=== PATIENT | female | born 1950 | race Caucasian/White ===

== ENCOUNTER 2016-08-04 13:45 | Emergency (ER) | payer MEDICARE, OTHER ==
[2016-08-04] MEDS ORDERED: Triamcinolone Acetonide 40 MG/ML 1 ML MDV INJECT ONE (14:28)
[2016-08-04] MEDS ORDERED: Ketorolac 60 MG/2 ML SDV IM ONE (14:28)
[2016-08-04 15:58] VITALS: BP 138/74
--- NOTE | 2016-08-05 07:39 | ER ---
Date of Service: 08/04/2016 SUBJECTIVE: Jannet presents to the emergency room with complaints of right hip pain. The patient states that she has a history of osteoarthritis of her right hip and states that she had a car ride yesterday that lasted approximately 6 hours. She states that at approximately noon today, she was attempting to navigate either onto or off the toilet when she fell onto her backside. She states that she is experiencing severe right hip pain. She states that she fell from a semi squatted position and states that there was no significant amount of force, but states that this exacerbated her chronic hip pain. She denies any numbness or tingling distal to the area of injury and denies any other injury other than what is isolated to her right hip. PAST MEDICAL HISTORY: 1. Coronary artery disease. 2. Chronic pain syndrome. 3. Hypothyroidism. 4. Peripheral neuropathy. 5. Peripheral edema. 6. Hyperlipidemia. 7. Asthma. 8. COPD. 9. Anxiety. MEDICATIONS: Please see MAR. ALLERGIES: Bupropion, etodolac, and morphine as well as plastic tape. REVIEW OF SYSTEMS: Denies any numbness or tingling distal to the area of injury. Denies any injury other than what was isolated to the right hip. PHYSICAL EXAMINATION: General: This is a 66-year-old female patient, who is in moderate to severe amount of distress. Vital Signs: Blood pressure initially was 174/71 after she received her medication, it was down to 138/74, heart rate was 98, respiratory rate was 16, O2 saturations 99%, temperature is 36.2. SKIN: Warm, pink, and dry. Musculoskeletal: She has discomfort to the entirety of the hip, primarily to the posterior aspect. There is no obvious step-offs or deformity noted. Her range of motion is decreased due to discomfort. She is able to bear weight with a walker. There is no crepitus noted. Neurovascular, circulation, sensation, motor function all within normal limits in distal portion of the extremity. RADIOGRAPHIC DATA: Right hip x-ray with pelvis was obtained. There was evidence of a possible lucency due to the fracture on the superior aspect of the right acetabulum. Radiologist suggested CT scan for further imaging. CT scan was subsequently performed and there was no evidence of any acute fracture. EMERGENCY ROOM COURSE: The patient was given injection of Toradol 60 mg IM and Kenalog 80 mg IM. She remained stable in my care. She did report significant improvement in her discomfort and remained stable under my care in the emergency room. ASSESSMENT: Acute on chronic right hip pain. PLAN: The patient will be discharged. I did start her on prednisone 20 mg daily for 5 days. Did start her also on Toradol 10 mg twice daily for pain. She does have oxycodone, which she states is of minimal benefit to her hip pain. I did advise her to follow up with her primary care provider to see if there is a different NSAID that she could take since the meloxicam that she is prescribed is not helping. All questions were answered. MWK: 08/04/2016 17:33:02 MODL: 08/04/2016 21:06:39 /[id number]
== END 2016-08-04 16:02 | disposition home or self-care (01) ==
LOC: VM.ED 13:45
DX: M25.551 Pain in right hip (principal); G89.29 Other chronic pain; Z88.5 Allergy status to narcotic agent; Z88.8 Allergy status to other drugs, medicaments and biological substances; Z91.048 Other nonmedicinal substance allergy status
CPT/HCPCS: 73502; 73700; 96372; 99283; 99284; J1885; J3301

== ENCOUNTER 2016-10-06 12:49 | Emergency (ER) | payer MEDICARE, OTHER ==
[2016-10-06] MEDS ORDERED: Ondansetron 4 MG/2 ML SDV IVPUSH ONE (13:00)
[2016-10-06] MEDS ORDERED: HYDROmorphone 1 MG/ML Syringe IVPUSH ONE ×2 (13:00→14:04)
--- NOTE | 2016-10-06 13:05 | EDM.PDOC ---
ED HPI GENERAL MEDICAL PROBLEM - General Chief Complaint: Lower Extremity Injury/Pain Stated Complaint: Right hip pain; no injury Time Seen by Provider: 10/06/16 12:53 Source of Information: Reports: Patient, EMS Notes Reviewed, RN, RN Notes Reviewed History Limitations: Reports: No Limitations - History of Present Illness INITIAL COMMENTS - FREE TEXT/NARRATIVE: Patient is brought to the ED at [facility] via EMS with complaints of acute onset of right hip pain. Patient states the pain started this AM. She was unable to get out of bed, so EMS was called. Patient states she was diagnosed with OA June 2016 and placed on pain medication. She recently had a cortizone injection in her lower back 2 weeks ago. She states the pain as been tolerable until this morning. Patient denies any right hip injury or trauma. No right hit surgeries. Patient states her right leg is numb, which is chronic from neuropathy. Patient states she usually uses a walker to aid in ambulation. She is unable to bare any weight on the right leg today due to pain. Patient takes Oxy daily for pain. Onset: Today, Sudden Duration: Chronic, Constant, Getting Worse Location: Reports: Upper Extremity, Right Quality: Reports: Sharp, Stabbing, Throbbing Severity: Severe Improves with: Reports: Rest Worsens with: Reports: Movement Context: Denies: Activity, Exercise, Lifting, Sick Contact, Trauma Associated Symptoms: Reports: No Other Symptoms Treatments ADMIN ASST: Reports: See EMS Report Right Hip Pain Score (Numeric/FACES): 7 - Related Data Allergies Allergy/AdvReac Type Severity Reaction Status Date / Time bupropion HCl Allergy Swelling Verified 10/06/16 13:29 [From Wellbutrin] etodolac [From Lodine] Allergy Swelling Verified 10/06/16 13:29 morphine Allergy Vomiting Verified 10/06/16 13:29 PLASTIC TAPE Allergy Rash Uncoded 08/16/16 15:54 Home Meds: Home Meds Aspirin [Cornell Chewable Aspirin] 1 tab PO DAILY 01/15/14 [History] EPINEPHrine [Epipen] 1 injection IM DAILY PRN 01/15/14 [History] Magnesium Oxide [Magnesium] 1 tab PO DAILY 01/15/14 [History] Tiotropium [Spiriva HandiHaler] 1 puff INH DAILY 01/15/14 [History] ALPRAZolam [Xanax] 0.25 mg PO TID 03/22/15 [History] Amitriptyline HCl 100 mg PO BEDTIME 03/22/15 [History] Simvastatin [Zocor] 20 mg PO DAILY 03/22/15 [History] rOPINIRole [Requip] 2 mg PO DAILY 03/22/15 [History] Gabapentin [Neurontin] 600 mg PO TID 08/04/16 [History] Levothyroxine 175 mcg PO ACBRK 08/04/16 [History] Umeclidinium Buhl [Incruse Ellipta] 1 puff IH DAILY 08/04/16 [History] predniSONE [Prednisone] 5 mg PO DAILY 08/04/16 [History] Albuterol [Proventil Neb Soln] 2.5 mg NEB Q6HRRT PRN 08/16/16 [History] Albuterol/Ipratropium [DuoNeb 3.0-0.5 MG/3 ML] 3 ml NEB QID PRN 08/16/16 [ History] Fluticasone/Salmeterol [Advair Diskus 500-50] 1 inh BID 08/16/16 [History] oxyCODONE HCl/Acetaminophen [Percocet 10-325 mg Tablet] 1 tab PO Q6H PRN [History] Past Medical History HEENT History: Reports: None Other HEENT History: wears glasses Cardiovascular History: Reports: High Cholesterol, None Other Cardiovascular History: Blood clots on left leg, left arm and right foot Respiratory History: Reports: Asthma, COPD, Croup Other Respiratory History: Asbestos exposure Gastrointestinal History: Reports: None Genitourinary History: Reports: 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: Musculoskeletal History: Reports: Arthritis, Back Pain, Chronic Neurological History: Reports: None Psychiatric History: Reports: Anxiety Endocrine/Metabolic History: Reports: Hypothyroidism Hematologic History: Reports: None Oncologic (Cancer) History: Reports: None Dermatologic History: Reports: None - Infectious Disease History Infectious Disease History: Reports: Chicken Pox, Measles, Mumps Other Infectious Disease History: Hx MRSA from abdominal surgery - Past Surgical History GI Surgical History: Reports: Appendectomy, Cholecystectomy, Hernia Repair/Other Neurological Surgical History: Reports: Other (See Below) Musculoskeletal Surgical History: Reports: Arthroscopic Knee, Other (See Below) Social & Family History - Family History Family Medical History: Noncontributory Cardiac: Reports: [place] Respiratory: Reports: COPD Neurological: Reports: CVA, MS, Other (See Below) Other Neurological Family History: Polio Oncologic: Reports: Breast - Tobacco Use Smoking Status *Q: Former Smoker Years of Tobacco use: 30 Packs/Tins Daily: 0.5 Used Tobacco, but Quit: Yes Month Tobacco Last Used: january, Second Hand Smoke Exposure: No - Caffeine Use Caffeine Use: Reports: Coffee, Tea Other Caffeine Use: 3 cups per day Caffeine Use Comment: 3cups/day - Alcohol Use Days Per Week of Alcohol Use: 0 - Recreational Drug Use Recreational Drug Use: No Review of Systems - Review of Systems Review Of Systems: See Below Constitutional: Denies: Chills, Fever Respiratory: Denies: Shortness of Breath, Cough Cardiovascular: Denies: Chest Pain, Palpitations Musculoskeletal: Reports: Leg Pain, Joint Pain, Muscle Pain, Muscle Stiffness Skin: Reports: No Symptoms Neurological: Reports: No Symptoms ED EXAM, GENERAL - Physical Exam Exam: See Below Exam Limited By: No Limitations General Appearance: Alert, Moderate Distress, Obese Head: Atraumatic, Normocephalic Neck: Supple Respiratory/Chest: No Respiratory Distress, Lungs Clear, Decreased Breath Sounds Cardiovascular: Regular Rate, Rhythm Extremities: Normal Inspection, Leg Pain (right), Limited Range of Motion ( right hip/leg) Neurological: Alert, Oriented Skin Exam: Warm, Dry, Intact, Normal Color, No Rash Course - Vital Signs Last Recorded V/S: Last Vital Signs Temp 37.2 C 10/06/16 12:55 Pulse 99 10/06/16 12:55 Resp 16 10/06/16 12:55 BP 122/46 L 10/06/16 12:55 Pulse Ox 93 L 10/06/16 12:55 - Orders/Labs/Meds Orders: Active Orders 24 hr Category Date Time Status Hip wo Cont Rt [CT] Stat Exams 10/06/16 13:01 Taken Sodium Chloride 0.9% [Saline Flush] Med 10/06/16 12:59 Active 10 ml FLUSH ASDIRECTED PRN Peripheral IV Insertion Adult [OM.PC] Routine Oth 10/06/16 12:59 Ordered Medication Orders Sodium Chloride (Saline Flush) 10 ml FLUSH ASDIRECTED PRN PRN Reason: Keep Vein Open Last Admin: 10/06/16 14:08 Dose: 10 ml Admin: 10/06/16 13:09 Dose: 10 ml Labs: Laboratory Tests 10/06/16 10/06/16 10/06/16 Range/Units 13:19 13:19 13:19 WBC 8.6 (4.0-10.0) x10^3/uL RBC 4.40 (4.00-5.50) x10^6/uL Hgb 13.3 (12.0-16.0) g/dL Hct 40.8 (33.0-47.0) % MCV 92.7 (78.0-93.0) fL MCH 30.2 (26.0-32.0) pg MCHC 32.6 (32.0-36.0) g/dL RDW Coeff of Jyoti 14.4 (10.0-15.0) % Plt Count 194 (130-400) x10^3/uL Neut % (Auto) 71.7 (50.0-80.0) % Lymph % (Auto) 20.5 L (25.0-50.0) % [place] % (Auto) 6.5 (2.0-11.0) % Eos % (Auto) 0.9 (0.0-4.0) % Baso % (Auto) 0.4 (0.2-1.2) % ESR 19 (0-21) mm/hr Sodium 143 (136-145) mmol/L Potassium 4.6 (3.5-5.1) mmol/L Chloride 106 (98-107) mmol/L Carbon Dioxide 30 (21-32) mmol/L BUN 16 (7-18) mg/dL Creatinine 0.8 (0.55-1.02) mg/dL Est Cr Clr Drug Dosing 61.35 mL/min Estimated GFR (MDRD) > 60 Glucose 106 (74-106) mg/dL Calcium 8.6 (8.5-10.1) mg/dL C-Reactive Protein 2.3 H (<=0.9) mg/dL TSH, Ultra Sensitive 1.632 (0.358-3.74) uIU/mL Meds: Medications Generic Name Dose Route Start Last Admin Trade Name Freq PRN Reason Stop Dose Admin Sodium Chloride 10 ml 10/06/16 12:59 10/06/16 14:08 Saline Flush FLUSH 10 ml ASDIRECTED PRN Administration Keep Vein Open Discontinued Medications Generic Name Dose Route Start Last Admin Trade Name Brynn PRN Reason Stop Dose Admin Hydromorphone HCl 2 mg 10/06/16 13:00 10/06/16 13:05 Dilaudid IVPUSH 10/06/16 13:01 2 mg ONETIME ONE Administration Hydromorphone HCl 2 mg 10/06/16 14:04 10/06/16 14:07 Dilaudid IVPUSH 10/06/16 14:05 2 mg ONETIME ONE Administration Ondansetron HCl 4 mg 10/06/16 13:00 10/06/16 13:08 Zofran IVPUSH 10/06/16 13:01 4 mg ONETIME ONE Administration - Radiology Interpretation Free Text/Narrative:: CT Right Hip: Large joint effusion with extensive osteolysis of the femoral head not seen in August 2016, as described in report. Given marked progression since August 2016, differential diagnosis includes septic arthritis with osteomyelitis, posttraumatic AVN, or inflammatory/depositional disease See scanned report in EMR CT Results Date: 10/06/16 CT Results Time: 15:57 Departure - Departure Time of Disposition: 17:25 Disposition: Home, Self-Care 01 Condition: Good Clinical Impression: Right hip joint effusion, Right hip pain - Discharge Information Forms: Interfacility Transfer EMTALA ED Communication - ED Communication Date/Time Date: 10/06/16 Time Called: 16:58 - Discussed Case With (1) Discussed Case With (1): Outpatient Provider (Dr. Bassett, Hospitalist and Dr. Huffman, Ortho. Recommend patient to be transferred to [facility] for further treatment of right hip) - Conversation Summary Admitting Provider Agreed to Patient's Admission: Yes Patient Aware of Amendments fo Care Plan: Yes - Problem List Review Problem List Initiated/Reviewed/Updated: Yes - My Orders Last 24 Hours: My Active Orders 10/06/16 12:59 Sodium Chloride 0.9% [Saline Flush] 10 ml FLUSH ASDIRECTED PRN Peripheral IV Insertion Adult [OM.PC] Routine 10/06/16 13:01 Hip wo Cont Rt [CT] Stat - Assessment/Plan Last 24 Hours: My Active Orders 10/06/16 12:59 Sodium Chloride 0.9% [Saline Flush] 10 ml FLUSH ASDIRECTED PRN Peripheral IV Insertion Adult [OM.PC] Routine 10/06/16 13:01 Hip wo Cont Rt [CT] Stat
[2016-10-06] MEDS: Sodium Chloride 0.9% 10 ML Syringe FLUSH PRN ×2 (13:09→14:08)
[2016-10-06 13:46] VITALS: BP 122/46
[2016-10-06 13:54] LABS: CHLORIDE,CL 106 mmol/L (98-107); SODIUM,NA 143 mmol/L (136-145)
== END 2016-10-06 18:30 | disposition home or self-care (01) ==
LOC: VM.ED 12:49
DX: M25.451 Effusion, right hip (principal); M16.11 Unilateral primary osteoarthritis, right hip; E78.00 Pure hypercholesterolemia, unspecified; Z86.718 Personal history of other venous thrombosis and embolism; J44.9 Chronic obstructive pulmonary disease, unspecified; E03.9 Hypothyroidism, unspecified; F41.9 Anxiety disorder, unspecified; Z79.82 Long term (current) use of aspirin; Z79.52 Long term (current) use of systemic steroids; Z79.899 Other long term (current) drug therapy; Z86.14 Personal history of Methicillin resistant Staphylococcus aureus infection; Z87.891 Personal history of nicotine dependence
CPT/HCPCS: 36415; 73700; 80048; 84443; 85025; 85652; 86140; 96374; 96375; 96376; 99285; J1170; J2405; J7050

== ENCOUNTER 2016-10-12 15:34 | Inpatient (IN) | payer MEDICARE, OTHER ==
[2016-10-12] MEDS ORDERED: EPINEPHrine 1 MG/ML SDV IM PRN (17:58)
--- NOTE | 2016-10-12 18:12 | PCM.HP ---
H&P History of Present Illness - General Date of Service: 10/12/16 Admit Problem/Dx: Admission Diagnosis/Problem Admission Diagnosis/Problem Hip pain - History of Present Illness Initial Comments - Free Text/Narative: 66 yo female is admitted [facility] after being discharge from [facility] in [place]. Patient was admitted due to increasing R hip pain. During work-up they found fluid within the joint that was then aspirated. After infection was ruled out the patient received a steroid injection into the joint. It was recommended to do further PT on [facility] and to see orthopedics following discharge to arrange for a hip replacement. Patient is currently rating her pain as a 6/10 now. Does get a "burning" sensation down the lateral portion of the R leg. Previously experienced radiation of pain into the groin but this has improved since her injection. She has been managed with Gabapentin, oxycodone, amitriptyline, Soma, lidocaine patches, and Icyhot. Walking has been improving over the last several days. States that initially she could only walk from the bed to her door but was able to walk to the nurses station today. She was previously independent with ambulation. Right Hip Pain Score (Numeric/FACES): 4 - Related Data Allergies/Adverse Reactions: Allergies Allergy/AdvReac Type Severity Reaction Status Date / Time bee pollen Allergy Swelling Verified 10/12/16 16:03 bupropion HCl Allergy Swelling Verified 10/06/16 13:29 [From Wellbutrin] etodolac [From Lodine] Allergy Swelling Verified 10/06/16 13:29 morphine Allergy Vomiting Verified 10/06/16 13:29 PLASTIC TAPE Allergy Rash Uncoded 08/16/16 15:54 Home Medications: Home Meds EPINEPHrine [Epipen] 1 injection IM ASDIRECTED PRN 01/15/14 [History] Magnesium Oxide [Magnesium] 400 mg PO DAILY 01/15/14 [History] ALPRAZolam [Xanax] 0.25 mg PO TID 03/22/15 [History] Amitriptyline HCl 100 mg PO BEDTIME 03/22/15 [History] Simvastatin [Zocor] 20 mg PO BEDTIME 03/22/15 [History] rOPINIRole [Requip] 2 mg PO BEDTIME 03/22/15 [History] Gabapentin [Neurontin] 600 mg PO TID 08/04/16 [History] Umeclidinium Bunola [Incruse Ellipta] 1 puff IH DAILY 08/04/16 [History] predniSONE [Prednisone] 5 mg PO DAILY 08/04/16 [History] Aspirin [Halfprin] 81 mg PO DAILY 10/12/16 [History] Carisoprodol [Soma] 350 mg PO BID 10/12/16 [History] Cyanocobalamin (Vitamin B-12) [Vitamin B-12] 1,000 mcg PO DAILY 10/12/16 [ History] Fluticasone/Salmeterol [Advair Diskus 250-50] 1 puff INH BID 10/12/16 [History] Levothyroxine 150 mcg PO ACBREAKFAST 10/12/16 [History] Lidocaine 5% [Lidoderm 5%] 3 patch TOP DAILY 10/12/16 [History] Methyl Salicylate/Menthol [Icy Hot [place]] 1 applic TP QID PRN 10/12/16 [History] Omeprazole 40 mg PO BIDAC 10/12/16 [History] Pyridoxine HCl [Vitamin B-6] 50 mg PO DAILY 10/12/16 [History] Sennosides/Docusate Sodium [Senokot-S Tablet] 2 tab PO BID PRN 10/12/16 [History ] Sucralfate [Carafate] 1 gm PO QID 10/12/16 [History] Thiamine [Vitamin B-1] 100 mg PO DAILY 10/12/16 [History] oxyCODONE HCl/Acetaminophen [Percocet 10-325 mg Tablet] 1 tab PO Q4H PRN [History] Past Medical History HEENT History: Reports: None Other HEENT History: wears glasses Cardiovascular History: Reports: None, Heart Failure, High Cholesterol, [place] Other Cardiovascular History: Blood clots on left leg, left arm and right foot Respiratory History: Reports: Asthma, COPD Other Respiratory History: Asbestos exposure Gastrointestinal History: Reports: None Genitourinary History: Reports: None 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: Musculoskeletal History: Reports: Arthritis, Back Pain, Chronic Neurological History: Reports: None Psychiatric History: Reports: Anxiety Endocrine/Metabolic History: Reports: Hypothyroidism, Obesity/BMI 30+ Hematologic History: Reports: None Oncologic (Cancer) History: Reports: None Dermatologic History: Reports: None - Infectious Disease History Infectious Disease History: Reports: Chicken Pox, Measles, Mumps Other Infectious Disease History: Hx MRSA from abdominal surgery - Past Surgical History HEENT Surgical History: Reports: Other (See Below) Other HEENT Surgeries/Procedures: throidectomy GI Surgical History: Reports: Appendectomy, Cholecystectomy, Hernia Repair/Other , Other (See Below) Other GI Surgeries/Procedures: endoscopy Female Surgical History: Reports: Hysterectomy Neurological Surgical History: Reports: Other (See Below) Musculoskeletal Surgical History: Reports: Arthroscopic Knee, Other (See Below) Other Musculoskeletal Surgeries/Procedures:: spine surgery Social & Family History - Family History Family Medical History: Noncontributory Cardiac: Reports: [place] Respiratory: Reports: COPD Neurological: Reports: CVA, MS, Other (See Below) Other Neurological Family History: Polio Oncologic: Reports: Breast - Tobacco Use Smoking Status *Q: Current Some Day Smoker Years of Tobacco use: 45 Packs/Tins Daily: 0.5 Used Tobacco, but Quit: Yes Month Tobacco Last Used: january, Second Hand Smoke Exposure: No - Caffeine Use Caffeine Use: Reports: Coffee, Soda Other Caffeine Use: 3 cups per day Caffeine Use Comment: 3cups/day - Alcohol Use Days Per Week of Alcohol Use: 0 - Recreational Drug Use Recreational Drug Use: No H&P Review of Systems - Review of Systems: Review Of Systems: See Below General: Denies: Weakness Pulmonary: Denies: Shortness of Breath Cardiovascular: Denies: Chest Pain, Edema Musculoskeletal: Reports: Joint Pain (R hip) Neurological: Reports: Numbness (R lateral thigh) Exam - Exam Exam: See Below - Vital Signs Vital Signs: Last Vital Signs Temp 36.4 C 10/12/16 17:28 Pulse 108 H 10/12/16 17:28 Resp 16 10/12/16 17:28 BP 136/94 H 10/12/16 17:28 Pulse Ox 95 10/12/16 17:28 Weight: 115.122 kg - Exam General: Alert, Oriented, Cooperative Lungs: Clear to Auscultation, Normal Respiratory Effort. No: Decreased Breath Sounds, Crackles, Rales, Rhonchi, Wheezing Cardiovascular: Regular Rhythm, Normal S1, Normal S2, Tachycardia (HR about 100) Abdomen: Normal Bowel Sounds, Soft. No: Distention Extremities: No: Edema Skin: Warm, Dry Neuro Extensive - Mental Status: Alert, Oriented x3, Normal Mood/Affect, Normal Cognition, Memory Intact Psychiatric: Alert, Normal Affect, Normal Mood *Q Meaningful Use (ADM) - VTE *Q VTE Criteria *Q: - Stroke *Q Stroke Criteria *Q: - AMI *Q AMI Criteria *Q: Problem List Initiated/Reviewed/Updated: Yes Orders Last 24hrs: Active Orders 24 hr Category Date Time Status Admission Status [Patient Status] [ADT] Routine ADT 10/12/16 17:01 Active Up ad Melissa [RC] ASDIRECTED Care 10/12/16 17:57 Ordered Vital Signs [RC] Q8H Care 10/12/16 17:57 Ordered OT Evaluation and Treatment [CONS] Routine Cons 10/12/16 18:02 Ordered PT Evaluation and Treatment [CONS] Routine Cons 10/12/16 18:02 Ordered Regular Diet [DIET] Diet 10/12/16 Breakfast Ordered ALPRAZolam [Xanax] Med 10/12/16 20:00 Ordered 0.25 mg PO TID Amitriptyline HCl [Amitriptyline HCl] Med 10/12/16 20:00 Ordered 100 mg PO BEDTIME Aspirin [Halfprin] Med 10/13/16 08:00 Ordered 81 mg PO DAILY Carisoprodol [Soma] Med 10/12/16 20:00 Ordered 350 mg PO BID Cyanocobalamin (Vitamin B12) [Vitamin B12] Med 10/13/16 08:00 Ordered 1,000 mcg PO DAILY Docusate Sodium/Sennosides [Senna Plus] Med 10/12/16 17:58 Ordered 2 tab PO BID PRN EPINEPHrine [Epipen] Med 10/12/16 17:58 Ordered 1 injection IM ASDIRECTED PRN Fluticasone/Salmeterol [Advair Diskus 250-50] Med 10/12/16 20:00 Ordered 1 puff INH BID Levothyroxine Med 10/13/16 07:00 Ordered 150 mcg PO ACBREAKFAST Lidocaine 5% [Lidoderm 5%] Med 10/13/16 08:00 Ordered 3 patch TOP DAILY Methyl Salicylate/Menthol [Icy Hot [place]] Med 10/12/16 17:58 Ordered 1 applic TP QID PRN Omeprazole Med 10/13/16 07:00 Ordered 40 mg PO BIDAC Pyridoxine HCl [Vitamin B-6] Med 10/13/16 08:00 Ordered 50 mg PO DAILY Simvastatin [Zocor] Med 10/12/16 20:00 Ordered 20 mg PO BEDTIME Sucralfate [Carafate] Med 10/12/16 20:00 Ordered 1 gm PO QID Thiamine [Vitamin B-1] Med 10/13/16 08:00 Ordered 100 mg PO DAILY Umeclidinium Bunola [Incruse Ellipta*] Med 10/13/16 08:00 Ordered 1 puff IH DAILY oxyCODONE HCl/Acetaminophen Med 10/12/16 17:58 Ordered 1 tab PO Q4H PRN predniSONE Med 10/13/16 08:00 Ordered 5 mg PO DAILY rOPINIRole [Requip] Med 10/12/16 20:00 Ordered 2 mg PO BEDTIME Code Status [Resuscitation Status] Routine Resus Stat 10/12/16 18:06 Ordered Medication Orders Alprazolam (Xanax) 0.25 mg PO TID FLORINDA Aspirin (Halfprin) 81 mg PO DAILY FLORINDA Carisoprodol (Soma) 350 mg PO BID FLORINDA Cyanocobalamin (Vitamin B12) 1,000 mcg PO DAILY FLORINDA Levothyroxine Sodium (Levothyroxine) 150 mcg PO ACBREAKFAST FLORINDA Lidocaine (Lidoderm 5%) mg TOP DAILY FLORINDA Non-Formulary Medication (Amitriptyline Hcl [Amitriptyline Hcl]) 100 mg PO BEDTIME FLORINDA Non-Formulary Medication (Fluticasone/Salmeterol [Advair Diskus 250-50]) 1 puff INH BID FLORINDA Non-Formulary Medication (Epinephrine [Epipen]) 1 injection IM ASDIRECTED PRN PRN Reason: Allergies Non-Formulary Medication (Methyl Salicylate/Menthol [Icy Hot [place]]) 1 applic TP QID PRN PRN Reason: Pain Non-Formulary Medication (Pyridoxine Hcl [Vitamin B-6]) 50 mg PO DAILY FLORINDA Non-Formulary Medication (Umeclidinium Bunola [Incruse Ellipta*]) 1 puff IH DAILY FLORINDA Non-Formulary Medication (Oxycodone Hcl/Acetaminophen) 1 tab PO Q4H PRN PRN Reason: Pain (severe 7-10) Omeprazole (Omeprazole) 40 mg PO BIDAC FLORINDA Prednisone (Prednisone) 5 mg PO DAILY FLORINDA Ropinirole HCl (Requip) 2 mg PO BEDTIME FLORINDA Senna/Docusate Sodium (Senna Plus) 2 tab PO BID PRN PRN Reason: Constipation Simvastatin (Zocor) 20 mg PO BEDTIME FLORINDA Sucralfate (Carafate) 1 gm PO QID FLORINDA Thiamine HCl (Vitamin B-1) 100 mg PO DAILY FLORINDA Assessment/Plan Comment:: Osteoarthritis of R hip COPD Hypothyroidism Anxiety Morbid obesity 1. PT and OT ordered for tomorrow 2. Keep medications the same 3. Will order IcyHot topical cream 4. Will need orthopedics referral when D/C. Patient would prefer the consult to be in [place]. 5. Full code There was question on the gabapentin dose. D/C instructions said 600 mg TID and the patient states that she was on 900 mg TID. After reviewing [facility] chart it appears she was to be on the 900 mg TID dose.
[2016-10-12] MEDS ORDERED: Gabapentin 300 MG Cap PO SCH (20:00)
[2016-10-12] MEDS: Sucralfate 1 GM Tab PO SCH (20:12)
[2016-10-12] MEDS: Amitriptyline 25 MG Tab PO SCH (20:13)
[2016-10-12] MEDS: Gabapentin 300 MG Cap PO SCH (20:13)
[2016-10-12] MEDS: Simvastatin 20 MG Tab PO SCH (20:14)
[2016-10-12] MEDS: ALPRAZolam 0.25 MG Tab PO SCH (20:14)
[2016-10-12] MEDS: rOPINIRole 2 MG Tab PO SCH (20:14)
[2016-10-12] MEDS: oxyCODONE 5 MG Tab PO PRN (20:15)
[2016-10-12] MEDS: Acetaminophen/oxyCODONE 325-5 MG Tab PO PRN (20:17)
[2016-10-12] MEDS: REMOVE LIDODERM TRDERM SCH (20:28)
[2016-10-12] MEDS: Formoterol/Mometasone 200-5 MCG 8.8 GM Inhaler IH SCH (20:34)
[2016-10-12] MEDS: Menthol/Methyl Salicylate 85 GM Tube TOP PRN ×2 (20:36→22:57)
[2016-10-13] MEDS: oxyCODONE 5 MG Tab PO PRN ×6 (00:19→23:00)
[2016-10-13] MEDS: Acetaminophen/oxyCODONE 325-5 MG Tab PO PRN ×6 (00:20→23:01)
[2016-10-13] MEDS: Sucralfate 1 GM Tab PO SCH ×4 (06:24→19:50)
[2016-10-13] MEDS: Omeprazole 20 MG Cap.CR PO SCH ×2 (06:24→16:55)
[2016-10-13] MEDS: Menthol/Methyl Salicylate 85 GM Tube TOP PRN ×2 (06:26→07:56)
[2016-10-13] MEDS ORDERED: Levothyroxine 150 MCG Tab PO SCH (07:00)
[2016-10-13] MEDS: Cyanocobalamin (Vitamin B12) 1,000 MCG Tab PO SCH (07:50)
[2016-10-13] MEDS: ALPRAZolam 0.25 MG Tab PO SCH ×3 (07:50→19:50)
[2016-10-13] MEDS: Magnesium Oxide 400 MG Tab PO SCH (07:50)
[2016-10-13] MEDS: Vitamin B6-pyridOXINE 50 MG Tab PO SCH (07:50)
[2016-10-13] MEDS: Lidocaine 5% 700 MG Patch TOP SCH (07:50)
[2016-10-13] MEDS: predniSONE 5 MG Tab PO SCH (07:51)
[2016-10-13] MEDS: Aspirin 81 MG Tab.EC PO SCH (07:51)
[2016-10-13] MEDS: Gabapentin 300 MG Cap PO SCH ×3 (07:51→19:49)
[2016-10-13] MEDS: Thiamine 100 MG Tab PO SCH (07:51)
[2016-10-13] MEDS: Formoterol/Mometasone 200-5 MCG 8.8 GM Inhaler IH SCH ×2 (07:54→19:52)
[2016-10-13] MEDS: INCRUSE ELLIPTA 62.5 MCG IH SCH (07:54)
[2016-10-13] MEDS: rOPINIRole 2 MG Tab PO SCH (19:49)
[2016-10-13] MEDS: Amitriptyline 25 MG Tab PO SCH (19:49)
[2016-10-13] MEDS: Simvastatin 20 MG Tab PO SCH (19:50)
[2016-10-13] MEDS: REMOVE LIDODERM TRDERM SCH (20:00)
[2016-10-14] MEDS: oxyCODONE 5 MG Tab PO PRN ×5 (04:01→20:11)
[2016-10-14] MEDS: Levothyroxine 150 MCG Tab PO SCH (04:01)
[2016-10-14] MEDS: Acetaminophen/oxyCODONE 325-5 MG Tab PO PRN ×5 (04:02→20:11)
[2016-10-14] MEDS: Omeprazole 20 MG Cap.CR PO SCH ×2 (06:26→16:05)
[2016-10-14] MEDS: Sucralfate 1 GM Tab PO SCH ×4 (06:26→20:05)
[2016-10-14] MEDS: Magnesium Oxide 400 MG Tab PO SCH (08:29)
[2016-10-14] MEDS: Vitamin B6-pyridOXINE 50 MG Tab PO SCH (08:29)
[2016-10-14] MEDS: Thiamine 100 MG Tab PO SCH (08:29)
[2016-10-14] MEDS: Aspirin 81 MG Tab.EC PO SCH (08:29)
[2016-10-14] MEDS: predniSONE 5 MG Tab PO SCH (08:29)
[2016-10-14] MEDS: Lidocaine 5% 700 MG Patch TOP SCH ×2 (08:30→12:57)
[2016-10-14] MEDS: ALPRAZolam 0.25 MG Tab PO SCH ×3 (08:30→20:06)
[2016-10-14] MEDS: Cyanocobalamin (Vitamin B12) 1,000 MCG Tab PO SCH (08:30)
[2016-10-14] MEDS: Gabapentin 300 MG Cap PO SCH ×3 (08:30→20:06)
[2016-10-14] MEDS: Formoterol/Mometasone 200-5 MCG 8.8 GM Inhaler IH SCH ×2 (08:36→20:05)
[2016-10-14] MEDS: INCRUSE ELLIPTA 62.5 MCG IH SCH (08:38)
[2016-10-14] MEDS: Calcium Carbonate 750 MG Tab.Chew PO PRN (10:56)
[2016-10-14 10:58] LABS: CHLORIDE,CL 100 mmol/L (98-107); SODIUM,NA 141 mmol/L (136-145)
[2016-10-14] MEDS: Menthol/Methyl Salicylate 85 GM Tube TOP PRN (16:10)
[2016-10-14] MEDS: Amitriptyline 25 MG Tab PO SCH (20:05)
[2016-10-14] MEDS: rOPINIRole 2 MG Tab PO SCH (20:06)
[2016-10-14] MEDS: Simvastatin 20 MG Tab PO SCH (20:07)
[2016-10-14] MEDS: REMOVE LIDODERM TRDERM SCH (20:15)
[2016-10-15] MEDS: Calcium Carbonate 750 MG Tab.Chew PO PRN ×3 (00:03→19:19)
[2016-10-15] MEDS: Acetaminophen/oxyCODONE 325-5 MG Tab PO PRN ×4 (00:13→13:10)
[2016-10-15] MEDS: oxyCODONE 5 MG Tab PO PRN ×4 (00:13→13:09)
[2016-10-15] MEDS: Levothyroxine 150 MCG Tab PO SCH (05:01)
[2016-10-15] MEDS: Omeprazole 20 MG Cap.CR PO SCH ×2 (06:06→17:08)
[2016-10-15] MEDS: Sucralfate 1 GM Tab PO SCH ×4 (06:06→19:41)
[2016-10-15] MEDS: Formoterol/Mometasone 200-5 MCG 8.8 GM Inhaler IH SCH ×2 (07:55→19:45)
[2016-10-15] MEDS: Cyanocobalamin (Vitamin B12) 1,000 MCG Tab PO SCH (07:55)
[2016-10-15] MEDS: Aspirin 81 MG Tab.EC PO SCH (07:56)
[2016-10-15] MEDS: predniSONE 5 MG Tab PO SCH (07:56)
[2016-10-15] MEDS: ALPRAZolam 0.25 MG Tab PO SCH ×3 (07:56→19:44)
[2016-10-15] MEDS: Gabapentin 300 MG Cap PO SCH ×3 (07:57→19:45)
[2016-10-15] MEDS: Magnesium Oxide 400 MG Tab PO SCH (07:57)
[2016-10-15] MEDS: Vitamin B6-pyridOXINE 50 MG Tab PO SCH (07:57)
[2016-10-15] MEDS: Thiamine 100 MG Tab PO SCH (07:57)
[2016-10-15] MEDS: Lidocaine 5% 700 MG Patch TOP SCH (07:58)
[2016-10-15] MEDS: INCRUSE ELLIPTA 62.5 MCG IH SCH (07:59)
--- NOTE | 2016-10-15 09:07 | PCM.PN ---
- General Info Date of Service: 10/15/16 Admission Dx/Problem (Free Text): 66 yo female seen on swingbed rounds. Patient has been experiencing increased pain in the R hip. Rates the pain as an 8/10 and does not feel the oxycodone is helping. Did experience 3 episodes of cramping yesterday. None since about noon on 10/14. BMP and magnesium checked and were within acceptable limits. During her hospital stay in [place] orth[facility]ics did do a consult and recommended outpatient follow-up to discuss the option of a R hip replacement due to her arthritis. Will need to obtain imagining prior to an appointment with them. Patient also needed to receive Tums yesterday for reflux. Feels symptoms were much better with this. She is questioning what can be done about the pain and when can she get set up with orthopedics. No other concerns at this time. It is noted that she has been experiencing troubles with her daughter and granddaughter and patient requests that no information be shared with them. - Review of Systems Gastrointestinal: Reports: Other (Reflux improved). Denies: Abdominal pain Musculoskeletal: Reports: other (R hip pain). Denies: back pain - Patient Data Vitals - most recent: Last Vital Signs Temp 36.6 C 10/15/16 05:59 Pulse 92 10/15/16 05:59 Resp 20 10/15/16 05:59 BP 147/71 H 10/15/16 05:59 Pulse Ox 95 10/15/16 05:59 Weight - most recent: 115.122 kg I&O - last 24 hours: Intake & Output 10/14/16 10/15/16 10/15/16 22:59 06:59 14:59 Intake Total 240 Output Total 400 Balance -160 Lab Results last 24 hrs: Laboratory Results - last 24 hr 10/14/16 Range/Units 10:25 Sodium 141 (136-145) mmol/L Potassium 3.9 (3.5-5.1) mmol/L Chloride 100 (98-107) mmol/L Carbon Dioxide 36 H (21-32) mmol/L BUN 21 H (7-18) mg/dL Creatinine 0.8 (0.55-1.02) mg/dL Est Cr Clr Drug Dosing 61.35 mL/min Estimated GFR (MDRD) > 60 Glucose 101 (74-106) mg/dL Calcium 8.9 (8.5-10.1) mg/dL Magnesium 2.0 (1.8-2.4) mg/dL TSH, Ultra Sensitive 5.051 H (0.358-3.74) uIU/mL Med Orders - Current: Current Medications Alprazolam (Xanax) 0.25 mg PO TID [facility] Last Admin: 10/15/16 07:56 Dose: 0.25 mg Amitriptyline HCl (Elavil) 100 mg PO BEDTIME [facility] Last Admin: 10/14/16 20:05 Dose: 100 mg Aspirin (Halfprin) 81 mg PO DAILY [facility] Last Admin: 10/15/16 07:56 Dose: 81 mg Calcium Carbonate/Glycine (Tums Extra Strength) 750 mg PO Q2H PRN PRN Reason: Dyspepsia Last Admin: 10/15/16 00:03 Dose: 750 mg Carisoprodol (Soma) 350 mg PO BID [facility] Last Admin: 10/15/16 07:56 Dose: 350 mg Cyanocobalamin (Vitamin B12) 1,000 mcg PO DAILY [facility] Last Admin: 10/15/16 07:55 Dose: 1,000 mcg Epinephrine HCl (Adrenalin 1:1000) 0.3 mg IM ASDIRECTED PRN PRN Reason: Allergies Gabapentin (Neurontin) 900 mg PO TID [facility] Last Admin: 10/15/16 07:57 Dose: 900 mg Levothyroxine Sodium (Levothyroxine) 150 mcg PO DAILY@0500 [facility] Last Admin: 10/15/16 05:01 Dose: 150 mcg Lidocaine (Lidoderm 5%) 2,100 mg TOP DAILY [facility] Last Admin: 10/15/16 07:58 Dose: 2,100 mg Magnesium Oxide (Magnesium Oxide) 400 mg PO DAILY [facility] Last Admin: 10/15/16 07:57 Dose: 400 mg Methyl Salicylate (Icy Hot Cream) 0 gm TOP QID PRN PRN Reason: Pain Last Admin: 10/14/16 16:10 Dose: 1 applic Miscellaneous Information (Remove Patch) 1 ea TRDERM DAILY@1999 [facility] Last Admin: 10/14/16 20:15 Dose: 1 ea Mometasone Furoate/Formoterol Fumar (Dulera 200-5 Mcg) 0 puff IH BID [facility] Last Admin: 10/15/16 07:55 Dose: 1 puff Incruse Ellipta 62. 5mcg Inhaler Own Med 0 puff IH DAILY [facility] Last Admin: 10/15/16 07:59 Dose: 1 puff Omeprazole (Omeprazole) 40 mg PO BIDAC [facility] Last Admin: 10/15/16 06:06 Dose: 40 mg Oxycodone HCl (Oxycodone) 5 mg PO Q4H PRN PRN Reason: SEVERE PAIN (LEVEL 7-10) Last Admin: 10/15/16 05:01 Dose: 5 mg Oxycodone/Acetaminophen (Percocet 325-5 Mg) 1 tab PO Q4H PRN PRN Reason: Pain (severe 7-10) Last Admin: 10/15/16 05:02 Dose: 1 tab Prednisone (Prednisone) 5 mg PO DAILY [facility] Last Admin: 10/15/16 07:56 Dose: 5 mg Pyridoxine HCl (Vitamin B6-Pyridoxine) 50 mg PO DAILY [facility] Last Admin: 10/15/16 07:57 Dose: 50 mg Ropinirole HCl (Requip) 2 mg PO BEDTIME [facility] Last Admin: 10/14/16 20:06 Dose: 2 mg Senna/Docusate Sodium (Senna Plus) 2 tab PO BID PRN PRN Reason: Constipation Last Admin: 10/15/16 07:55 Dose: 1 tab Simvastatin (Zocor) 20 mg PO BEDTIME [facility] Last Admin: 10/14/16 20:07 Dose: 20 mg Sucralfate (Carafate) 1 gm PO QIDACANDBED [facility] Last Admin: 10/15/16 06:06 Dose: 1 gm Thiamine HCl (Vitamin B-1) 100 mg PO DAILY [facility] Last Admin: 10/15/16 07:57 Dose: 100 mg Discontinued Medications Gabapentin (Neurontin) 600 mg PO TID [facility] Levothyroxine Sodium (Levothyroxine) 150 mcg PO ACBREAKFAST [facility] Last Admin: 10/13/16 06:24 Dose: 150 mcg Methyl Salicylate (Icy Hot Cream) 0 gm TOP QID PRN PRN Reason: Pain Last Admin: 10/13/16 07:56 Dose: 1 applic - Exam General: alert, oriented Lungs: Clear to auscultation, Normal respiratory effort. No: Decreased breath sounds, Crackles, Rales, Rhonchi, Wheezing Cardiovascular: Regular Rate, Regular Rhythm, No Murmurs Skin: warm, dry Psy/Mental Status: alert, normal affect, normal mood - Problem List Review Problem List Initiated/Reviewed/Updated: Yes - My Orders Last 24 Hours: My Active Orders 10/14/16 10:45 Calcium Carbonate [Tums Extra Strength] 750 mg PO Q2H PRN - Plan Plan:: Osteoarthritis of R hip COPD Hypothyroidism Anxiety Morbid obesity 1. Continue working with PT/OT 2. x-rays were previously completed through the ER. These will be forwarded to [place] for the orthopedic to review. 3. Patient scheduled for orthopedic visit with Dr. Bonilla on 10/21 at 11:05 AM
[2016-10-15] MEDS: Ipratropium 0.02% 0.5 MG/2.5 ML Neb Soln NEB SCH ×3 (10:47→19:51)
[2016-10-15] MEDS: Acetaminophen/oxyCODONE 325-5 MG Tab PO SCH ×2 (16:07→19:41)
[2016-10-15] MEDS: oxyCODONE 5 MG Tab PO SCH ×2 (16:07→19:43)
[2016-10-15] MEDS: Amitriptyline 25 MG Tab PO SCH (19:42)
[2016-10-15] MEDS: Simvastatin 20 MG Tab PO SCH (19:43)
[2016-10-15] MEDS: rOPINIRole 2 MG Tab PO SCH (19:43)
[2016-10-15] MEDS: REMOVE LIDODERM TRDERM SCH (19:51)
[2016-10-16] MEDS: Acetaminophen/oxyCODONE 325-5 MG Tab PO SCH ×6 (00:01→20:22)
[2016-10-16] MEDS: oxyCODONE 5 MG Tab PO SCH ×6 (03:40→20:20)
[2016-10-16] MEDS: Levothyroxine 150 MCG Tab PO SCH (05:28)
[2016-10-16] MEDS: Sucralfate 1 GM Tab PO SCH ×4 (06:05→20:19)
[2016-10-16] MEDS: Omeprazole 20 MG Cap.CR PO SCH ×2 (06:05→16:01)
[2016-10-16] MEDS: Ipratropium 0.02% 0.5 MG/2.5 ML Neb Soln NEB SCH ×4 (07:10→20:25)
[2016-10-16] MEDS: Formoterol/Mometasone 200-5 MCG 8.8 GM Inhaler IH SCH ×2 (07:50→20:22)
[2016-10-16] MEDS: predniSONE 5 MG Tab PO SCH (07:51)
[2016-10-16] MEDS: Magnesium Oxide 400 MG Tab PO SCH (07:52)
[2016-10-16] MEDS: Vitamin B6-pyridOXINE 50 MG Tab PO SCH (07:53)
[2016-10-16] MEDS: Thiamine 100 MG Tab PO SCH (07:53)
[2016-10-16] MEDS: Menthol/Methyl Salicylate 85 GM Tube TOP PRN (07:53)
[2016-10-16] MEDS: Aspirin 81 MG Tab.EC PO SCH (07:53)
[2016-10-16] MEDS: Cyanocobalamin (Vitamin B12) 1,000 MCG Tab PO SCH (07:53)
[2016-10-16] MEDS: Gabapentin 300 MG Cap PO SCH ×3 (07:54→20:19)
[2016-10-16] MEDS: ALPRAZolam 0.25 MG Tab PO SCH ×3 (07:54→20:19)
[2016-10-16] MEDS: Lidocaine 5% 700 MG Patch TOP SCH (07:56)
[2016-10-16] MEDS: Amitriptyline 25 MG Tab PO SCH (20:18)
[2016-10-16] MEDS: rOPINIRole 2 MG Tab PO SCH (20:20)
[2016-10-16] MEDS: REMOVE LIDODERM TRDERM SCH (20:21)
[2016-10-16] MEDS: Simvastatin 20 MG Tab PO SCH (20:21)
[2016-10-17] MEDS: Acetaminophen/oxyCODONE 325-5 MG Tab PO SCH ×7 (00:08→23:41)
[2016-10-17] MEDS: oxyCODONE 5 MG Tab PO SCH ×7 (00:09→23:41)
[2016-10-17] MEDS: Levothyroxine 150 MCG Tab PO SCH (06:02)
[2016-10-17] MEDS: Omeprazole 20 MG Cap.CR PO SCH ×2 (06:03→16:00)
[2016-10-17] MEDS: Sucralfate 1 GM Tab PO SCH ×4 (06:03→19:20)
[2016-10-17] MEDS: Ipratropium 0.02% 0.5 MG/2.5 ML Neb Soln NEB SCH ×4 (06:03→19:18)
[2016-10-17] MEDS: ALPRAZolam 0.25 MG Tab PO SCH ×3 (07:57→19:23)
[2016-10-17] MEDS: Thiamine 100 MG Tab PO SCH (07:57)
[2016-10-17] MEDS: Aspirin 81 MG Tab.EC PO SCH (07:57)
[2016-10-17] MEDS: Magnesium Oxide 400 MG Tab PO SCH (07:57)
[2016-10-17] MEDS: predniSONE 5 MG Tab PO SCH (07:57)
[2016-10-17] MEDS: Cyanocobalamin (Vitamin B12) 1,000 MCG Tab PO SCH (07:57)
[2016-10-17] MEDS: Lidocaine 5% 700 MG Patch TOP SCH (07:57)
[2016-10-17] MEDS: Vitamin B6-pyridOXINE 50 MG Tab PO SCH (07:57)
[2016-10-17] MEDS: Gabapentin 300 MG Cap PO SCH ×3 (07:57→19:22)
[2016-10-17] MEDS: Formoterol/Mometasone 200-5 MCG 8.8 GM Inhaler IH SCH ×2 (07:58→19:15)
[2016-10-17] MEDS: tiZANidine 4 MG Tab PO SCH ×2 (11:16→19:22)
[2016-10-17] MEDS: Amitriptyline 25 MG Tab PO SCH (19:19)
[2016-10-17] MEDS: Simvastatin 20 MG Tab PO SCH (19:20)
[2016-10-17] MEDS: rOPINIRole 2 MG Tab PO SCH (19:21)
[2016-10-17] MEDS: REMOVE LIDODERM TRDERM SCH (19:23)
[2016-10-18] MEDS: Acetaminophen/oxyCODONE 325-5 MG Tab PO SCH ×5 (04:02→19:45)
[2016-10-18] MEDS: oxyCODONE 5 MG Tab PO SCH ×5 (04:03→19:46)
[2016-10-18] MEDS: Levothyroxine 150 MCG Tab PO SCH (04:03)
[2016-10-18] MEDS: Omeprazole 20 MG Cap.CR PO SCH ×2 (06:01→16:03)
[2016-10-18] MEDS: Sucralfate 1 GM Tab PO SCH ×4 (06:02→19:47)
[2016-10-18] MEDS: Ipratropium 0.02% 0.5 MG/2.5 ML Neb Soln NEB SCH ×4 (06:02→19:44)
[2016-10-18] MEDS: Gabapentin 300 MG Cap PO SCH ×3 (08:27→19:49)
[2016-10-18] MEDS: Aspirin 81 MG Tab.EC PO SCH (08:27)
[2016-10-18] MEDS: ALPRAZolam 0.25 MG Tab PO SCH ×3 (08:28→19:47)
[2016-10-18] MEDS: Thiamine 100 MG Tab PO SCH (08:29)
[2016-10-18] MEDS: Vitamin B6-pyridOXINE 50 MG Tab PO SCH (08:29)
[2016-10-18] MEDS: predniSONE 5 MG Tab PO SCH (08:29)
[2016-10-18] MEDS: Cyanocobalamin (Vitamin B12) 1,000 MCG Tab PO SCH (08:29)
[2016-10-18] MEDS: tiZANidine 4 MG Tab PO SCH ×3 (08:29→19:48)
[2016-10-18] MEDS: Magnesium Oxide 400 MG Tab PO SCH (08:30)
[2016-10-18] MEDS: Lidocaine 5% 700 MG Patch TOP SCH (08:33)
[2016-10-18] MEDS: Formoterol/Mometasone 200-5 MCG 8.8 GM Inhaler IH SCH ×2 (09:21→19:50)
[2016-10-18] MEDS: rOPINIRole 2 MG Tab PO SCH (19:45)
[2016-10-18] MEDS: Amitriptyline 25 MG Tab PO SCH (19:47)
[2016-10-18] MEDS: REMOVE LIDODERM TRDERM SCH (19:48)
[2016-10-18] MEDS: Simvastatin 20 MG Tab PO SCH (19:50)
[2016-10-19] MEDS: Levothyroxine 150 MCG Tab PO SCH (04:09)
[2016-10-19] MEDS: Acetaminophen/oxyCODONE 325-5 MG Tab PO SCH ×7 (04:10→23:42)
[2016-10-19] MEDS: oxyCODONE 5 MG Tab PO SCH ×7 (04:11→23:43)
[2016-10-19] MEDS: Omeprazole 20 MG Cap.CR PO SCH ×2 (06:01→16:11)
[2016-10-19] MEDS: Sucralfate 1 GM Tab PO SCH ×4 (06:01→20:33)
[2016-10-19] MEDS: Ipratropium 0.02% 0.5 MG/2.5 ML Neb Soln NEB SCH ×4 (07:06→20:52)
[2016-10-19] MEDS: Formoterol/Mometasone 200-5 MCG 8.8 GM Inhaler IH SCH ×2 (08:09→20:36)
[2016-10-19] MEDS: ALPRAZolam 0.25 MG Tab PO SCH ×3 (08:10→20:34)
[2016-10-19] MEDS: predniSONE 5 MG Tab PO SCH (08:10)
[2016-10-19] MEDS: Cyanocobalamin (Vitamin B12) 1,000 MCG Tab PO SCH (08:10)
[2016-10-19] MEDS: Thiamine 100 MG Tab PO SCH (08:10)
[2016-10-19] MEDS: Gabapentin 300 MG Cap PO SCH ×3 (08:10→20:33)
[2016-10-19] MEDS: tiZANidine 4 MG Tab PO SCH ×3 (08:10→20:31)
[2016-10-19] MEDS: Vitamin B6-pyridOXINE 50 MG Tab PO SCH (08:10)
[2016-10-19] MEDS: Magnesium Oxide 400 MG Tab PO SCH (08:10)
[2016-10-19] MEDS: Aspirin 81 MG Tab.EC PO SCH (08:10)
[2016-10-19] MEDS: Lidocaine 5% 700 MG Patch TOP SCH (08:11)
[2016-10-19] MEDS: Menthol/Methyl Salicylate 85 GM Tube TOP PRN ×2 (08:19→20:43)
[2016-10-19] MEDS: Amitriptyline 25 MG Tab PO SCH (20:31)
[2016-10-19] MEDS: rOPINIRole 2 MG Tab PO SCH (20:31)
[2016-10-19] MEDS: Simvastatin 20 MG Tab PO SCH (20:33)
[2016-10-19] MEDS: REMOVE LIDODERM TRDERM SCH (20:45)
[2016-10-20] MEDS: oxyCODONE 5 MG Tab PO SCH ×6 (03:59→23:36)
[2016-10-20] MEDS: Acetaminophen/oxyCODONE 325-5 MG Tab PO SCH ×6 (04:00→23:35)
[2016-10-20] MEDS: Levothyroxine 150 MCG Tab PO SCH (04:01)
[2016-10-20] MEDS: Sucralfate 1 GM Tab PO SCH ×4 (06:42→19:43)
[2016-10-20] MEDS: Omeprazole 20 MG Cap.CR PO SCH ×2 (06:42→16:53)
[2016-10-20] MEDS: Ipratropium 0.02% 0.5 MG/2.5 ML Neb Soln NEB SCH ×4 (07:04→19:43)
[2016-10-20] MEDS: ALPRAZolam 0.25 MG Tab PO SCH ×3 (08:06→19:43)
[2016-10-20] MEDS: Aspirin 81 MG Tab.EC PO SCH (08:08)
[2016-10-20] MEDS: predniSONE 5 MG Tab PO SCH (08:08)
[2016-10-20] MEDS: Vitamin B6-pyridOXINE 50 MG Tab PO SCH (08:08)
[2016-10-20] MEDS: Magnesium Oxide 400 MG Tab PO SCH (08:08)
[2016-10-20] MEDS: Cyanocobalamin (Vitamin B12) 1,000 MCG Tab PO SCH (08:08)
[2016-10-20] MEDS: tiZANidine 4 MG Tab PO SCH ×3 (08:09→19:42)
[2016-10-20] MEDS: Thiamine 100 MG Tab PO SCH (08:09)
[2016-10-20] MEDS: Gabapentin 300 MG Cap PO SCH ×3 (08:09→19:43)
[2016-10-20] MEDS: Lidocaine 5% 700 MG Patch TOP SCH (08:10)
[2016-10-20] MEDS: Formoterol/Mometasone 200-5 MCG 8.8 GM Inhaler IH SCH ×2 (08:10→19:44)
[2016-10-20] MEDS: Amitriptyline 25 MG Tab PO SCH (19:42)
[2016-10-20] MEDS: Simvastatin 20 MG Tab PO SCH (19:42)
[2016-10-20] MEDS: rOPINIRole 2 MG Tab PO SCH (19:43)
[2016-10-20] MEDS: REMOVE LIDODERM TRDERM SCH (19:51)
[2016-10-20] MEDS: Menthol/Methyl Salicylate 85 GM Tube TOP PRN (19:52)
[2016-10-21] MEDS: oxyCODONE 5 MG Tab PO SCH ×5 (03:41→19:58)
[2016-10-21] MEDS: Acetaminophen/oxyCODONE 325-5 MG Tab PO SCH ×6 (03:43→23:59)
[2016-10-21] MEDS: Levothyroxine 150 MCG Tab PO SCH (04:00)
[2016-10-21] MEDS: Sucralfate 1 GM Tab PO SCH ×4 (06:03→19:59)
[2016-10-21] MEDS: Omeprazole 20 MG Cap.CR PO SCH ×2 (06:03→17:38)
[2016-10-21] MEDS: Ipratropium 0.02% 0.5 MG/2.5 ML Neb Soln NEB SCH ×4 (06:56→20:04)
[2016-10-21] MEDS: Formoterol/Mometasone 200-5 MCG 8.8 GM Inhaler IH SCH ×2 (07:47→19:59)
[2016-10-21] MEDS: Thiamine 100 MG Tab PO SCH (07:47)
[2016-10-21] MEDS: predniSONE 5 MG Tab PO SCH (07:47)
[2016-10-21] MEDS: Gabapentin 300 MG Cap PO SCH ×3 (07:48→19:57)
[2016-10-21] MEDS: Vitamin B6-pyridOXINE 50 MG Tab PO SCH (07:49)
[2016-10-21] MEDS: tiZANidine 4 MG Tab PO SCH ×3 (07:49→19:57)
[2016-10-21] MEDS: ALPRAZolam 0.25 MG Tab PO SCH ×3 (07:50→19:58)
[2016-10-21] MEDS: Magnesium Oxide 400 MG Tab PO SCH (07:50)
[2016-10-21] MEDS: Lidocaine 5% 700 MG Patch TOP SCH (07:50)
[2016-10-21] MEDS: Cyanocobalamin (Vitamin B12) 1,000 MCG Tab PO SCH (07:50)
[2016-10-21] MEDS: Aspirin 81 MG Tab.EC PO SCH (07:51)
[2016-10-21] MEDS: rOPINIRole 2 MG Tab PO SCH (19:57)
[2016-10-21] MEDS: Amitriptyline 25 MG Tab PO SCH (19:57)
[2016-10-21] MEDS: Simvastatin 20 MG Tab PO SCH (19:58)
[2016-10-21] MEDS: REMOVE LIDODERM TRDERM SCH (20:00)
[2016-10-22] MEDS: Acetaminophen/oxyCODONE 325-5 MG Tab PO SCH ×6 (03:37→23:47)
[2016-10-22] MEDS: Levothyroxine 150 MCG Tab PO SCH ×2 (03:38→05:43)
[2016-10-22] MEDS: oxyCODONE 5 MG Tab PO SCH ×7 (03:38→23:48)
[2016-10-22] MEDS: Sucralfate 1 GM Tab PO SCH ×4 (06:05→19:24)
[2016-10-22] MEDS: Omeprazole 20 MG Cap.CR PO SCH ×2 (06:06→17:05)
[2016-10-22] MEDS: Ipratropium 0.02% 0.5 MG/2.5 ML Neb Soln NEB SCH ×4 (06:56→19:23)
[2016-10-22] MEDS: Lidocaine 5% 700 MG Patch TOP SCH (07:53)
[2016-10-22] MEDS: Magnesium Oxide 400 MG Tab PO SCH (07:53)
[2016-10-22] MEDS: Cyanocobalamin (Vitamin B12) 1,000 MCG Tab PO SCH (07:54)
[2016-10-22] MEDS: Vitamin B6-pyridOXINE 50 MG Tab PO SCH (07:54)
[2016-10-22] MEDS: tiZANidine 4 MG Tab PO SCH ×3 (07:54→19:24)
[2016-10-22] MEDS: Aspirin 81 MG Tab.EC PO SCH (07:54)
[2016-10-22] MEDS: Thiamine 100 MG Tab PO SCH (07:55)
[2016-10-22] MEDS: Gabapentin 300 MG Cap PO SCH ×3 (07:55→19:24)
[2016-10-22] MEDS: ALPRAZolam 0.25 MG Tab PO SCH ×3 (07:56→19:24)
[2016-10-22] MEDS: predniSONE 5 MG Tab PO SCH (07:56)
[2016-10-22] MEDS: Formoterol/Mometasone 200-5 MCG 8.8 GM Inhaler IH SCH ×2 (07:56→19:26)
[2016-10-22] MEDS: Amitriptyline 25 MG Tab PO SCH (19:24)
[2016-10-22] MEDS: Simvastatin 20 MG Tab PO SCH (19:24)
[2016-10-22] MEDS: rOPINIRole 2 MG Tab PO SCH (19:24)
[2016-10-22] MEDS: REMOVE LIDODERM TRDERM SCH (19:27)
[2016-10-23] MEDS: Levothyroxine 150 MCG Tab PO SCH ×2 (03:21→04:22)
[2016-10-23] MEDS: Acetaminophen/oxyCODONE 325-5 MG Tab PO SCH ×3 (03:21→11:59)
[2016-10-23] MEDS: oxyCODONE 5 MG Tab PO SCH ×3 (03:21→11:58)
[2016-10-23 06:02] VITALS: BP 143/62
[2016-10-23] MEDS: Sucralfate 1 GM Tab PO SCH ×2 (06:08→11:05)
[2016-10-23] MEDS: Omeprazole 20 MG Cap.CR PO SCH (06:08)
[2016-10-23] MEDS: Ipratropium 0.02% 0.5 MG/2.5 ML Neb Soln NEB SCH ×2 (07:15→10:48)
[2016-10-23] MEDS: ALPRAZolam 0.25 MG Tab PO SCH ×2 (07:54→11:57)
[2016-10-23] MEDS: Gabapentin 300 MG Cap PO SCH ×2 (07:55→11:56)
[2016-10-23] MEDS: predniSONE 5 MG Tab PO SCH (07:56)
[2016-10-23] MEDS: Aspirin 81 MG Tab.EC PO SCH (07:56)
[2016-10-23] MEDS: Vitamin B6-pyridOXINE 50 MG Tab PO SCH (07:56)
[2016-10-23] MEDS: Thiamine 100 MG Tab PO SCH (07:56)
[2016-10-23] MEDS: Magnesium Oxide 400 MG Tab PO SCH (07:56)
[2016-10-23] MEDS: Cyanocobalamin (Vitamin B12) 1,000 MCG Tab PO SCH (07:56)
[2016-10-23] MEDS: Lidocaine 5% 700 MG Patch TOP SCH (07:57)
[2016-10-23] MEDS: tiZANidine 4 MG Tab PO SCH ×2 (07:57→11:56)
[2016-10-23] MEDS: Formoterol/Mometasone 200-5 MCG 8.8 GM Inhaler IH SCH (07:59)
--- NOTE | 2016-10-23 11:58 | PCM.DCSUM1 ---
Discharge Summary - Discharge Data Discharge Date: 10/23/16 Discharge Disposition: Home, Self-Care 01 Condition: Good - Patient Summary/Data Consults: Consultations 10/12/16 18:02 OT Evaluation and Treatment [CONS] Routine PT Evaluation and Treatment [CONS] Routine 10/18/16 18:20 Consult to [facility] [CONS] Routine - Patient Instructions Diet: Usual Diet as Tolerated Activity: Apply Ice, As Tolerated Driving: Do Not Drive Showering/Bathing: May Shower Notify Provider of: Fever, Increased Pain, Swelling and Redness Other/Special Instructions: 1. Recheck in the clinic in 1 week. 2. Try to avoid the Icy Hot as this will need to be stopped prior to surgery. 3. We will decreased the oxycodone/acetaminophen (AKA Percocet) to 5-325 mg every 4 hours. We will discuss further decreasing this prior to surgery. 4. We are going to decrease the Soma dose and work on stopping this completely. 5. Keep other medications the same at this time. 6. Physical therapy will be done at the hospital - Discharge Plan Prescriptions/Med Rec: Acetaminophen/oxyCODONE [Percocet 325-5 MG] 1 tab PO Q4H #60 tablet Carisoprodol [Soma] 250 mg PO BID #20 tablet tiZANidine [Zanaflex] 4 mg PO TID #30 tablet Home Medications: Home Meds EPINEPHrine [Epipen] 1 injection IM ASDIRECTED PRN 01/15/14 [History] Magnesium Oxide [Magnesium] 400 mg PO DAILY 01/15/14 [History] ALPRAZolam [Xanax] 0.25 mg PO TID 03/22/15 [History] Amitriptyline HCl 100 mg PO BEDTIME 03/22/15 [History] Simvastatin [Zocor] 20 mg PO BEDTIME 03/22/15 [History] rOPINIRole [Requip] 2 mg PO BEDTIME 03/22/15 [History] Umeclidinium [place] [Incruse Ellipta*] 1 puff IH DAILY 08/04/16 [History] predniSONE [Prednisone] 5 mg PO DAILY 08/04/16 [History] Aspirin [Halfprin] 81 mg PO DAILY 10/12/16 [History] Cyanocobalamin (Vitamin B-12) [Vitamin B-12] 1,000 mcg PO DAILY 10/12/16 [ History] Fluticasone/Salmeterol [Advair Diskus 250-50] 1 puff INH BID 10/12/16 [History] Levothyroxine 150 mcg PO ACBREAKFAST 10/12/16 [History] Lidocaine 5% [Lidoderm 5%] 3 patch TOP DAILY 10/12/16 [History] Omeprazole 40 mg PO BIDAC 10/12/16 [History] Pyridoxine HCl [Vitamin B-6] 50 mg PO DAILY 10/12/16 [History] Sennosides/Docusate Sodium [Senokot-S Tablet] 2 tab PO BID PRN 10/12/16 [History ] Sucralfate [Carafate] 1 gm PO QID 10/12/16 [History] Thiamine [Vitamin B-1] 100 mg PO DAILY 10/12/16 [History] Acetaminophen/oxyCODONE [Percocet 325-5 MG] 1 tab PO Q4H #60 tablet 10/23/16 [Rx ] Carisoprodol [Soma] 250 mg PO BID #20 tablet 10/23/16 [Rx] Gabapentin [Neurontin] 900 mg PO TID cap 10/23/16 [Rx] Ipratropium [Atrovent] 0.5 mg NEB 0700,1100,1500,2000 neb 10/23/16 [Rx] tiZANidine [Zanaflex] 4 mg PO TID #30 tablet 10/23/16 [Rx] - General Info Date of Service: 10/23/16 Admission Dx/Problem (Free Text: 66 yo female seen on [facility] swingbed for discharge. Patient was transferred to [facility] for inpatient PT/OT after she was admitted to [facility] in [place] for acute hip pain. Patient will be continuing outpatient PT at [facility]. She did refuse to have home health PT. During her [facility] stay the on-call orthopedist was consulted and he recommended a R hip replacement due to osteoarthritis. Patient did have an appointment with Dr. Bonilla on 10/21 and discussed the surgery. [facility] is in the process of getting a date scheduled. Per his recommendations he would like for Jannet to cut down on some of her pain medications prior to surgery. He would also like to see her stop using the Icy hot cream due to its affects on the skin. I did discuss this further with the patient today. She is currently receiving the Oxycodone 10-325 mg Q4H. She is also on Gabapentin 900 mg TID, Soma 350 mg BID, Zanaflex 4 mg TID, Prednisone 5 mg QD, and Amitriptyline 100 mg HS. We agreed to cut the oxycodone down to 5- 325 mg Q4H and then discuss reducing this further at her 1 week hospital follow- up. We also decreased the Soma to 250 mg BID and plan to discontinue this as it is really on recommended for short-term use. Patient is agreeable to the medication changes and would like to get scheduled for the surgery as soon as possible. She has been experiencing about 8/10 the majority of her stay. States that it take several hours for her to get the pain under control and to get up and moving. States the stiffness tends to last until about 1 PM but will be longer if up and moving a lot. We were in the process of getting her set up with the [facility] in [place] for her other chronic pain prior to her admission. They will need to have her previous records before scheduling. Patient is agreeable to sign a release and provide the records. At this time she does not have any other concerns and again verbalizes she would like to get the surgery completed. Spent 30 minutes face to face with patient. - Review of Systems General: Denies: Weakness Musculoskeletal: Reports: Joint Pain (R hip pain), Other (R leg muscle spasms, R hip stiffness) Neurological: Denies: Numbness, Tingling, Weakness - Patient Data Vitals - Most Recent: Last Vital Signs Temp 36.7 C 10/23/16 06:00 Pulse 104 H 10/23/16 06:00 Resp 20 10/23/16 06:00 BP 143/62 H 10/23/16 06:00 Pulse Ox 93 L 10/23/16 06:00 Weight - Most Recent: 120.111 kg I&O - Last 24 hours: Intake & Output 10/22/16 10/23/16 10/23/16 22:59 06:59 14:59 Intake Total 360 420 Balance 360 420 Med Orders - Current: Current Medications Alprazolam (Xanax) 0.25 mg PO TID [facility] Last Admin: 10/23/16 07:54 Dose: 0.25 mg Amitriptyline HCl (Elavil) 100 mg PO BEDTIME [facility] Last Admin: 10/22/16 19:24 Dose: 100 mg Aspirin (Halfprin) 81 mg PO DAILY [facility] Last Admin: 10/23/16 07:56 Dose: 81 mg Calcium Carbonate/Glycine (Tums Extra Strength) 750 mg PO Q2H PRN PRN Reason: Dyspepsia Last Admin: 10/15/16 19:19 Dose: 750 mg Carisoprodol (Soma) 350 mg PO BID [facility] Last Admin: 10/23/16 07:57 Dose: 350 mg Cyanocobalamin (Vitamin B12) 1,000 mcg PO DAILY [facility] Last Admin: 10/23/16 07:56 Dose: 1,000 mcg Epinephrine HCl (Adrenalin 1:1000) 0.3 mg IM ASDIRECTED PRN PRN Reason: Allergies Gabapentin (Neurontin) 900 mg PO TID [facility] Last Admin: 10/23/16 07:55 Dose: 900 mg Ipratropium [place] (Atrovent) 0.5 mg NEB 0700,1100,1500,2000 [facility] Last Admin: 10/23/16 10:48 Dose: 0.5 mg Levothyroxine Sodium (Levothyroxine) 150 mcg PO DAILY@0500 [facility] Last Admin: 10/23/16 04:22 Dose: Not Given Lidocaine (Lidoderm 5%) 2,100 mg TOP DAILY [facility] Last Admin: 10/23/16 07:57 Dose: 2,100 mg Magnesium Oxide (Magnesium Oxide) 400 mg PO DAILY [facility] Last Admin: 10/23/16 07:56 Dose: 400 mg Methyl Salicylate (Icy Hot Cream) 0 gm TOP QID PRN PRN Reason: Pain Last Admin: 10/20/16 19:52 Dose: 1 applic Miscellaneous Information (Remove Patch) 1 ea TRDERM DAILY@1999 [facility] Last Admin: 10/22/16 19:27 Dose: 1 ea Mometasone Furoate/Formoterol Fumar (Dulera 200-5 Mcg) 0 puff IH BID [facility] Last Admin: 10/23/16 07:59 Dose: 2 puff Omeprazole (Omeprazole) 40 mg PO BIDAC [facility] Last Admin: 10/23/16 06:08 Dose: 40 mg Oxycodone HCl (Oxycodone) 5 mg PO Q4H [facility] Last Admin: 10/23/16 07:54 Dose: 5 mg Oxycodone/Acetaminophen (Percocet 325-5 Mg) 1 tab PO Q4H [facility] Last Admin: 10/23/16 07:51 Dose: 1 tab Prednisone (Prednisone) 5 mg PO DAILY [facility] Last Admin: 10/23/16 07:56 Dose: 5 mg Pyridoxine HCl (Vitamin B6-Pyridoxine) 50 mg PO DAILY [facility] Last Admin: 10/23/16 07:56 Dose: 50 mg Ropinirole HCl (Requip) 2 mg PO BEDTIME [facility] Last Admin: 10/22/16 19:24 Dose: 2 mg Senna/Docusate Sodium (Senna Plus) 2 tab PO BID PRN PRN Reason: Constipation Last Admin: 10/22/16 07:58 Dose: 2 tab Simvastatin (Zocor) 20 mg PO BEDTIME [facility] Last Admin: 10/22/16 19:24 Dose: 20 mg Sucralfate (Carafate) 1 gm PO QIDACANDBED [facility] Last Admin: 10/23/16 11:05 Dose: 1 gm Thiamine HCl (Vitamin B-1) 100 mg PO DAILY [facility] Last Admin: 10/23/16 07:56 Dose: 100 mg Tizanidine HCl (Zanaflex) 4 mg PO TID [facility] Last Admin: 10/23/16 07:57 Dose: 4 mg Discontinued Medications Gabapentin (Neurontin) 600 mg PO TID [facility] Levothyroxine Sodium (Levothyroxine) 150 mcg PO ACBREAKFAST [facility] Last Admin: 10/13/16 06:24 Dose: 150 mcg Methyl Salicylate (Icy Hot Cream) 0 gm TOP QID PRN PRN Reason: Pain Last Admin: 10/13/16 07:56 Dose: 1 applic Incruse Ellipta 62. 5mcg Inhaler Own Med 0 puff IH DAILY [facility] Last Admin: 10/15/16 07:59 Dose: 1 puff Oxycodone HCl (Oxycodone) 5 mg PO Q4H PRN PRN Reason: SEVERE PAIN (LEVEL 7-10) Last Admin: 10/15/16 13:09 Dose: 5 mg Oxycodone/Acetaminophen (Percocet 325-5 Mg) 1 tab PO Q4H PRN PRN Reason: Pain (severe 7-10) Last Admin: 10/15/16 13:10 Dose: 1 tab - Exam Quality Assessment: Denies: supplemental oxygen General: Reports: alert, oriented, cooperative Extremities: Normal Inspection, No Pedal Edema, Leg Pain (R leg/hip) Skin: Reports: warm, dry, intact. Denies: rash, ecchymosis Psy/Mental Status: Reports: alert, normal affect, normal mood *Q Meaningful Use (DIS) - VTE *Q VTE Criteria *Q: - Stroke *Q Stroke Criteria *Q: - AMI *Q AMI Criteria *Q:
== END 2016-10-23 14:50 | disposition home or self-care (01) | DRG 554 ==
LOC: VM.MS 16:55
PROVIDERS: ADMIT Physician Assistant; ATTEND Physician Assistant
DX: M16.11 Unilateral primary osteoarthritis, right hip (principal); J44.9 Chronic obstructive pulmonary disease, unspecified; J45.909 Unspecified asthma, uncomplicated; E03.9 Hypothyroidism, unspecified; F41.9 Anxiety disorder, unspecified; E66.01 Morbid (severe) obesity due to excess calories; Z68.30 Body mass index [BMI] 30.0-30.9, adult; F17.200 Nicotine dependence, unspecified, uncomplicated; Z91.09 Other allergy status, other than to drugs and biological substances; Z79.82 Long term (current) use of aspirin; Z79.899 Other long term (current) drug therapy; Z88.6 Allergy status to analgesic agent; Z88.8 Allergy status to other drugs, medicaments and biological substances
CPT/HCPCS: 36415; 80048; 83735; 84443; 94640-76; 97110-GP; 97116-GP; 97161-GP; 97165-GO; 97535-GO; A9270-GY

== ENCOUNTER 2016-11-03 13:55 | Observation (INO) | payer MEDICARE, OTHER ==
[2016-11-03] MEDS ORDERED: HYDROmorphone 1 MG/ML Syringe IVPUSH ONE (15:21)
--- NOTE | 2016-11-03 17:04 | EDM.PDOC ---
ED HPI GENERAL MEDICAL PROBLEM - General Chief Complaint: Lower Extremity Injury/Pain Stated Complaint: ER Time Seen by Provider: 11/03/16 14:23 Source of Information: Reports: Patient - History of Present Illness INITIAL COMMENTS - FREE TEXT/NARRATIVE: Patient with chronic pain and arthritis in her right hip. She does need hip replacement surgery. She fell last night at approximately 0230 in the AM. She is unable to move her leg. Is brought in via ambulance. She did miss her appointment with Dee Salgado due to missing the transit to bring her to the appointment. Rates pain a severe 01/12. Is awaiting ortho consultation. Onset: Today, Sudden Duration: Chronic Location: Reports: Lower Extremity, Right Quality: Reports: Burning, Sharp, Stabbing Severity: Severe Improves with: Reports: Medication Associated Symptoms: Reports: No Other Symptoms Treatments CONTINUITY MANAGER: Reports: IV/IO, Other (see below) Other Treatments CONTINUITY MANAGER: Dilaudid 1mg IV in ambulance right hip Pain Score (Numeric/FACES): 8 - Related Data Allergies Allergy/AdvReac Type Severity Reaction Status Date / Time bee pollen Allergy Swelling Verified 11/03/16 14:00 bupropion HCl Allergy Swelling Verified 11/03/16 14:00 [From Wellbutrin] etodolac [From Lodine] Allergy Swelling Verified 11/03/16 14:00 morphine AdvReac Vomiting Verified 11/03/16 14:00 PLASTIC TAPE Allergy Rash Uncoded 11/03/16 14:00 Home Meds: Home Meds EPINEPHrine [Epipen] 1 injection IM ASDIRECTED PRN 01/15/14 [History] Magnesium Oxide [Magnesium] 400 mg PO DAILY 01/15/14 [History] ALPRAZolam [Xanax] 0.25 mg PO TID 03/22/15 [History] Amitriptyline HCl 100 mg PO BEDTIME 03/22/15 [History] Simvastatin [Zocor] 20 mg PO BEDTIME 03/22/15 [History] rOPINIRole [Requip] 2 mg PO BEDTIME 03/22/15 [History] Umeclidinium [place] [Incruse Ellipta*] 1 puff IH DAILY 08/04/16 [History] predniSONE [Prednisone] 5 mg PO DAILY 08/04/16 [History] Aspirin [Halfprin] 81 mg PO DAILY 10/12/16 [History] Cyanocobalamin (Vitamin B-12) [Vitamin B-12] 1,000 mcg PO DAILY 10/12/16 [ History] Fluticasone/Salmeterol [Advair Diskus 250-50] 1 puff INH BID 10/12/16 [History] Levothyroxine 150 mcg PO ACBREAKFAST 10/12/16 [History] Lidocaine 5% [Lidoderm 5%] 3 patch TOP DAILY 10/12/16 [History] Omeprazole 40 mg PO BIDAC 10/12/16 [History] Pyridoxine HCl [Vitamin B-6] 50 mg PO DAILY 10/12/16 [History] Sennosides/Docusate Sodium [Senokot-S Tablet] 2 tab PO BID PRN 10/12/16 [History ] Sucralfate [Carafate] 1 gm PO QID 10/12/16 [History] Thiamine [Vitamin B-1] 100 mg PO DAILY 10/12/16 [History] Acetaminophen/oxyCODONE [Percocet 325-5 MG] 1 tab PO Q4H #60 tablet 10/23/16 [Rx ] Carisoprodol [Soma] 250 mg PO BID #20 tablet 10/23/16 [Rx] Gabapentin [Neurontin] 900 mg PO TID cap 10/23/16 [Rx] Ipratropium [Atrovent] 0.5 mg NEB 0700,1100,1500,2000 neb 10/23/16 [Rx] tiZANidine [Zanaflex] 4 mg PO TID #30 tablet 10/23/16 [Rx] Past Medical History HEENT History: Reports: None Other HEENT History: wears glasses Cardiovascular History: Reports: None, Heart Failure, High Cholesterol, [place] Other Cardiovascular History: Blood clots on left leg, left arm and right foot Respiratory History: Reports: Asthma, COPD Other Respiratory History: Asbestos exposure Gastrointestinal History: Reports: None Genitourinary History: Reports: None NURSING ADMIN History: Reports: Musculoskeletal History: Reports: Arthritis, Back Pain, Chronic Neurological History: Reports: None Psychiatric History: Reports: Anxiety Endocrine/Metabolic History: Reports: Hypothyroidism, Obesity/BMI 30+ Hematologic History: Reports: None Oncologic (Cancer) History: Reports: None Dermatologic History: Reports: None - Infectious Disease History Infectious Disease History: Reports: Chicken Pox, Measles, Mumps Other Infectious Disease History: Hx MRSA from abdominal surgery - Past Surgical History HEENT Surgical History: Reports: Other (See Below) Other HEENT Surgeries/Procedures: throidectomy GI Surgical History: Reports: Appendectomy, Cholecystectomy, Hernia Repair/Other , Other (See Below) Other GI Surgeries/Procedures: endoscopy Female Surgical History: Reports: Hysterectomy Neurological Surgical History: Reports: Other (See Below) Musculoskeletal Surgical History: Reports: Arthroscopic Knee, Other (See Below) Other Musculoskeletal Surgeries/Procedures:: spine surgery Social & Family History - Family History Family Medical History: Noncontributory Cardiac: Reports: [place] Respiratory: Reports: COPD Neurological: Reports: CVA, MS, Other (See Below) Other Neurological Family History: Polio Oncologic: Reports: Breast - Tobacco Use Smoking Status *Q: Current Every Day Smoker Years of Tobacco use: 30 Packs/Tins Daily: 0.1 Used Tobacco, but Quit: Yes Month Tobacco Last Used: january, Second Hand Smoke Exposure: No - Caffeine Use Caffeine Use: Reports: Coffee, Soda Other Caffeine Use: 3 cups per day Caffeine Use Comment: 3cups/day - Alcohol Use Days Per Week of Alcohol Use: 0 - Recreational Drug Use Recreational Drug Use: No Review of Systems - Review of Systems Review Of Systems: See Below Constitutional: Reports: No Symptoms Eyes: Reports: No Symptoms Ears: Reports: No Symptoms Nose: Reports: No Symptoms Mouth/Throat: Reports: No Symptoms Respiratory: Reports: No Symptoms Cardiovascular: Reports: No Symptoms GI/Abdominal: Reports: No Symptoms Genitourinary: Reports: No Symptoms Musculoskeletal: Reports: Leg Pain Skin: Reports: No Symptoms Neurological: Reports: No Symptoms Psychiatric: Reports: No Symptoms ED EXAM, GENERAL - Physical Exam Exam: See Below Exam Limited By: No Limitations General Appearance: Alert, WD/WN, Mild Distress Eye Exam: Bilateral Eye: EOMI, PERRL Ears: Normal TMs, Hearing Loss Throat/Mouth: Normal Inspection, Normal Oropharynx Head: Atraumatic, Normocephalic Neck: Normal Inspection, Supple, Non-Tender, Full Range of Motion Respiratory/Chest: No Respiratory Distress, Lungs Clear, Normal Breath Sounds Cardiovascular: Normal Peripheral Pulses, Regular Rate, Rhythm, No Murmur GI/Abdominal: Normal Bowel Sounds, Soft, Non-Tender, No Organomegaly Back Exam: Normal Inspection Extremities: Normal Inspection, Non-Tender, Normal Capillary Refill, Pedal Edema , Limited Range of Motion (right hip due to severe pain) Neurological: Alert, Oriented, CN II-XII Intact, Normal Cognition, Normal Gait, Normal Reflexes, No Motor/Sensory Deficits Psychiatric: Normal Affect, Anxious Skin Exam: Warm, Dry, Intact, Normal Color Lymphatic: No Adenopathy Course - Vital Signs Last Recorded V/S: Last Vital Signs Temp 36.9 C 11/03/16 14:12 Pulse 112 H 11/03/16 14:12 Resp 20 11/03/16 14:12 BP 133/87 11/03/16 14:12 Pulse Ox 94 L 11/03/16 14:12 - Orders/Labs/Meds Orders: Active Orders 24 hr Category Date Time Status Hip Min 2V or 3V w Pelvis Rt [CR] Stat Exams 11/03/16 14:01 Taken Meds: Medications Discontinued Medications Generic Name Dose Route Start Last Admin Trade Name Marlonq PRN Reason Stop Dose Admin Hydromorphone HCl 1 mg 11/03/16 15:21 11/03/16 15:25 Dilaudid IVPUSH 11/03/16 15:22 1 mg ONETIME ONE Administration Departure - Departure Time of Disposition: 17:00 Disposition: Refer to Observation Condition: Fair Clinical Impression: Right hip pain, Hip pain, right - Discharge Information Instructions: Hip Pain, Ankle Sprain, [id number], Cast or Splint Care, Easy- to-Read, Crutch Use, [id number] Forms: ED Department Discharge - Problem List & Annotations (1) Right hip pain SNOMED Code(s): 42655123 Code(s): M25.551 - PAIN IN RIGHT HIP Status: Acute Priority: Medium Current Visit: Yes - Problem List Review Problem List Initiated/Reviewed/Updated: Yes - My Orders Last 24 Hours: My Active Orders 11/03/16 14:01 Hip Min 2V or 3V w Pelvis Rt [CR] Stat - Assessment/Plan Last 24 Hours: My Active Orders 11/03/16 14:01 Hip Min 2V or 3V w Pelvis Rt [CR] Stat Assessment:: right hip arthria Plan: observation admission for pain relief
[2016-11-03] MEDS ORDERED: Ibuprofen 200 MG Tab PO PRN (17:13)
[2016-11-03] MEDS ORDERED: Ondansetron 4 MG Tab.DIS PO PRN (17:13)
[2016-11-03] MEDS: Acetaminophen/oxyCODONE 325-5 MG Tab PO PRN (18:26)
[2016-11-03] MEDS: Enoxaparin 40 MG/0.4 ML Syringe SUBCUT SCH (18:26)
[2016-11-03] MEDS ORDERED: EPINEPHRINE IM PRN (19:39)
[2016-11-03] MEDS ORDERED: Amitriptyline 25 MG Tab PO SCH (20:00)
[2016-11-03] MEDS ORDERED: CARISOPRODOL 250 MG PO SCH (20:00)
[2016-11-03] MEDS ORDERED: rOPINIRole 2 MG Tab PO SCH (20:00)
[2016-11-03] MEDS ORDERED: Simvastatin 20 MG Tab PO SCH (20:00)
[2016-11-03] MEDS: Gabapentin 300 MG Cap PO SCH (20:20)
[2016-11-03] MEDS: ALPRAZolam 0.25 MG Tab PO SCH (20:21)
[2016-11-03] MEDS: Sucralfate 1 GM Tab PO SCH (20:22)
[2016-11-03] MEDS: Acetaminophen/oxyCODONE 325-5 MG Tab PO SCH (20:22)
[2016-11-03] MEDS: tiZANidine 4 MG Tab PO SCH (20:25)
[2016-11-03] MEDS: Ipratropium 0.02% 0.5 MG/2.5 ML Neb Soln NEB SCH (20:30)
[2016-11-03] MEDS: Formoterol/Mometasone 200-5 MCG 8.8 GM Inhaler IH SCH (20:55)
[2016-11-03] MEDS: HYDROmorphone 1 MG/ML Syringe IVPUSH PRN (21:42)
[2016-11-04] MEDS: HYDROmorphone 1 MG/ML Syringe IVPUSH PRN (01:08)
[2016-11-04] MEDS: Acetaminophen/oxyCODONE 325-5 MG Tab PO SCH ×4 (02:52→11:18)
[2016-11-04] MEDS: Acetaminophen/oxyCODONE 325-5 MG Tab PO PRN (05:06)
[2016-11-04] MEDS ORDERED: Levothyroxine 150 MCG Tab PO SCH ×2 (07:00)
[2016-11-04] MEDS ORDERED: Omeprazole 20 MG Cap.CR PO SCH ×2 (07:00)
[2016-11-04] MEDS: Sucralfate 1 GM Tab PO SCH ×2 (07:42→11:18)
[2016-11-04] MEDS: Gabapentin 300 MG Cap PO SCH ×2 (07:42→11:18)
[2016-11-04] MEDS: Aspirin 81 MG Tab.EC PO SCH ×2 (07:43→07:48)
[2016-11-04] MEDS: tiZANidine 4 MG Tab PO SCH ×2 (07:43→11:18)
[2016-11-04] MEDS: Enoxaparin 40 MG/0.4 ML Syringe SUBCUT SCH (07:44)
[2016-11-04] MEDS: ALPRAZolam 0.25 MG Tab PO SCH ×2 (07:46→11:18)
[2016-11-04] MEDS: Ipratropium 0.02% 0.5 MG/2.5 ML Neb Soln NEB SCH ×2 (07:53→11:36)
[2016-11-04] MEDS: Formoterol/Mometasone 200-5 MCG 8.8 GM Inhaler IH SCH (07:54)
[2016-11-04] MEDS ORDERED: UMECLIDINIUM BROMIDE IH SCH (08:00)
[2016-11-04] MEDS ORDERED: Lidocaine 5% 700 MG Patch TOP SCH (08:00)
[2016-11-04] MEDS ORDERED: predniSONE 5 MG Tab PO SCH (08:00)
[2016-11-04] MEDS ORDERED: Vitamin B6-pyridOXINE 50 MG Tab PO SCH (08:00)
[2016-11-04] MEDS ORDERED: Cyanocobalamin (Vitamin B12) 1,000 MCG Tab PO SCH (08:00)
[2016-11-04] MEDS ORDERED: Magnesium Oxide 400 MG Tab PO SCH (08:00)
[2016-11-04] MEDS ORDERED: Thiamine 100 MG Tab PO SCH (08:00)
[2016-11-04 09:49] VITALS: BP 130/81
--- NOTE | 2016-11-04 22:41 | DISCH ---
ADMITTING PHYSICIAN: CEM Perez. ADMISSION DIAGNOSIS: Chronic hip pain. DISCHARGE DIAGNOSIS: Chronic hip pain. SUBJECTIVE: The patient was admitted yesterday with complaints of pain to her right hip. The plan was for the patient undergo replacement of the right hip but her orthopedic surgeon has been resistive to doing the surgery due to the fact that the patient currently takes a large amount of opiate pain medication and due to compliance issues with the patient. The patient is scheduled for another ortho consult within the next week. The patient states that she fell at approximately 2:30 the previous morning, but did not call the ambulance until the next afternoon. The patient is also having a lot of problems with her granddaughter who she currently resides with over difficulties with her living situation. The patient states that she has been told that she is no longer welcome to reside with her granddaughter and she states that she has "no place to ago." The patient moved here from [facility] to live with her granddaughter recently as her daughter was unwilling to have the patient reside with her either due to a family discord. The patient was given Dilaudid 0.5 mg IV for breakthrough pain and kept on her current medications. She is able to ambulate and had no difficulties over the night. Subsequently, the patient did not meet criteria for either observation or acute admission and subsequently the patient is being discharged. PHYSICAL EXAMINATION: General: This is a 66-year-old female patient, who is in no acute distress. Vital Signs: Blood pressure is 112/52, heart rate is 100, temp is 36.5, respiratory rate is 20, O2 saturations 94%. Skin: Warm, pink, and dry. HEENT: Normocephalic and atraumatic. Eyes, PERRLA. Extraocular movements are intact. Mouth, oral mucosa is moist. Lungs: Clear to auscultation. Heart: Regular rate and rhythm. Remainder of her physical examination is within normal limits. DISCHARGE CONDITION: Fair. FOLLOW UP: In [address] Kellogg, her orthopedic surgeon. Also follow up in 1 week with a Dee Salgado, her primary care provider. DISCHARGE MEDICATIONS: Please see MAR. No changes at this time. All questions were answered. MWK: 11/04/2016 13:15:53 MODL: 11/04/2016 22:30:25 /[id number]
== END 2016-11-04 13:40 | disposition home or self-care (01) ==
LOC: VM.ED 13:55 → VM.MS 15:53
PROVIDERS: ADMIT Nurse Practitioner Family; ATTEND Nurse Practitioner Family
DX: G89.29 Other chronic pain (principal); M25.551 Pain in right hip; E78.00 Pure hypercholesterolemia, unspecified; J45.909 Unspecified asthma, uncomplicated; E03.9 Hypothyroidism, unspecified; E66.9 Obesity, unspecified; Z88.8 Allergy status to other drugs, medicaments and biological substances; Z91.030 Bee allergy status; Z91.09 Other allergy status, other than to drugs and biological substances; Z79.82 Long term (current) use of aspirin; Z79.899 Other long term (current) drug therapy; Z90.49 Acquired absence of other specified parts of digestive tract; Z90.710 Acquired absence of both cervix and uterus; Z98.890 Other specified postprocedural states; F17.210 Nicotine dependence, cigarettes, uncomplicated; Z90.89 Acquired absence of other organs; Z68.30 Body mass index [BMI] 30.0-30.9, adult
CPT/HCPCS: 73502; 94640; 96374; 99285; A9270; J1170; J1650; 96376; 99217; 99220; G0378

== ENCOUNTER 2019-11-19 11:30 | Emergency (ER) | payer MEDICARE, OTHER ==
[2019-11-19 11:44] VITALS: BP 115/57; PULSE 111
[2019-11-19] MEDS ORDERED: Lidocaine 1% 30 ML SDV INJECT ONE (12:03)
[2019-11-19] MEDS ORDERED: Sulfamethoxazole/Trimethoprim 800-160 MG Tab PO ONE (12:05)
[2019-11-19] MEDS ORDERED: Take Home: Acetaminophen/HYDROcodone 325-10 MG, 5 Tab Pack PO ONE (12:37)
[2019-11-19] MEDS ORDERED: Take Home: Sulfamethoxazole/Trimethoprim 800-160 MG Tab, 2 Tab Pack PO ONE (12:38)
--- NOTE | 2019-11-19 12:53 | EDM.PDOC ---
ED HPI GENERAL MEDICAL PROBLEM - General Chief Complaint: Skin Complaint Stated Complaint: abscess scalp Time Seen by Provider: 11/19/19 12:25 Source of Information: Reports: Patient History Limitations: Reports: No Limitations - History of Present Illness INITIAL COMMENTS - FREE TEXT/NARRATIVE: Patient comes emergency department today with complaints of a sore on the back of her lower scalp. For about a week the patient has had an area of redness swelling induration and pain. It is been slowly getting worse. She did attempt to open and drain it by manually squeezing it which she was unable to. It is gotten so bad that is very painful for her to even lift up her head. She denies any fever or chills. No internal headache. No paresthesias of her arms. She does have some pain with the movement of her right arm trying to reach up to her head although there is no loss of function or paresthesia. Her last tetanus shot was 2 yrs ago she relates. She denies any injury to the area. She has been placing ice and heat packs to the area since the development although it continues to worsen. Neck Pain Score (Numeric/FACES): 8 - Related Data Allergies Allergy/AdvReac Type Severity Reaction Status Date / Time bee pollen Allergy Swelling Verified 11/19/19 11:42 bupropion HCl Allergy Swelling Verified 11/19/19 11:42 [From Wellbutrin] etodolac [From Lodine] Allergy Swelling Verified 11/19/19 11:42 morphine AdvReac Vomiting Verified 11/19/19 11:42 PLASTIC TAPE Allergy Rash Uncoded 11/19/19 11:42 Home Meds: Home Meds EPINEPHrine [Epipen] 1 injection IM ASDIRECTED PRN 01/15/14 [History] Magnesium Oxide [Magnesium] 400 mg PO DAILY 01/15/14 [History] ALPRAZolam [Xanax] 0.25 mg PO TID 03/22/15 [History] Amitriptyline HCl 100 mg PO BEDTIME 03/22/15 [History] Simvastatin [Zocor] 20 mg PO BEDTIME 03/22/15 [History] rOPINIRole [Requip] 4 mg PO BEDTIME 03/22/15 [History] Umeclidinium [place] [Incruse Ellipta*] 1 puff IH DAILY 08/04/16 [History] predniSONE [Prednisone] 5 mg PO DAILY 08/04/16 [History] Aspirin [Halfprin] 81 mg PO DAILY 10/12/16 [History] Cyanocobalamin (Vitamin B-12) [Vitamin B-12] 1,000 mcg PO DAILY 10/12/16 [History] Fluticasone/Salmeterol [Advair Diskus 250-50] 1 puff INH BID 10/12/16 [History] Levothyroxine 150 mcg PO ACBREAKFAST 10/12/16 [History] Lidocaine 5% [Lidoderm 5%] 3 patch TOP DAILY 10/12/16 [History] Omeprazole 40 mg PO BIDAC 10/12/16 [History] Pyridoxine HCl [Vitamin B-6] 2 mg PO BID 10/12/16 [History] Sennosides/Docusate Sodium [Senokot-S Tablet] 2 tab PO BID PRN 10/12/16 [History] Sucralfate [Carafate] 1 gm PO QID 10/12/16 [History] Thiamine [Vitamin B-1] 100 mg PO DAILY 10/12/16 [History] Gabapentin [Neurontin] 900 mg PO TID cap 10/23/16 [Rx] Ipratropium [Atrovent] 0.5 mg NEB 0700,1100,1500,2000 neb 10/23/16 [Rx] tiZANidine [Zanaflex] 4 mg PO TID #30 tablet 10/23/16 [Rx] Acetaminophen/oxyCODONE [Percocet 325-5 MG] 1 tab PO TID 11/19/19 [History] Baclofen 10 mg PO BID 11/19/19 [History] Calcium Carbonate [Calcium] 500 mg PO DAILY 11/19/19 [History] Cholecalciferol (Vitamin D3) [Vitamin D3] 2,000 unit PO DAILY 11/19/19 [History] Famotidine 40 mg PO BEDTIME 11/19/19 [History] Folic Acid 0.4 mg PO DAILY 11/19/19 [History] Levothyroxine 175 mcg PO ACBREAKFAST 11/19/19 [History] Magnesium Oxide [Magnesium] 500 mg PO BID 11/19/19 [History] Niacin 50 mg PO DAILY 11/19/19 [History] Omeprazole 40 mg PO DAILY 11/19/19 [History] Oxybutynin 10 mg PO DAILY 11/19/19 [History] Sulfamethoxazole/Trimethoprim [Bactrim Ds Tablet] 1 each PO BID #20 tablet 11/19/19 [Rx] Zinc 50 mg PO DAILY 11/19/19 [History] traZODone HCl [Trazodone HCl] 50 mg PO BEDTIME 11/19/19 [History] Past Medical History HEENT History: Reports: None Other HEENT History: wears glasses Cardiovascular History: Reports: None, Heart Failure, High Cholesterol, [place] Other Cardiovascular History: Blood clots on left leg, left arm and right foot Respiratory History: Reports: Asthma, COPD Other Respiratory History: Asbestos exposure Gastrointestinal History: Reports: None Genitourinary History: Reports: None CLIENT SERVICE PROFESSIONAL History: Reports: Musculoskeletal History: Reports: Arthritis, Back Pain, Chronic Neurological History: Reports: None Psychiatric History: Reports: Anxiety Endocrine/Metabolic History: Reports: Hypothyroidism, Obesity/BMI 30+ Hematologic History: Reports: None Oncologic (Cancer) History: Reports: None Dermatologic History: Reports: None - Infectious Disease History Infectious Disease History: Reports: Chicken Pox, Measles, Mumps Other Infectious Disease History: Hx MRSA from abdominal surgery - Past Surgical History HEENT Surgical History: Reports: Other (See Below) Other HEENT Surgeries/Procedures: throidectomy GI Surgical History: Reports: Appendectomy, Cholecystectomy, Hernia Repair/Other, Other (See Below) Other GI Surgeries/Procedures: endoscopy Female Surgical History: Reports: Hysterectomy Neurological Surgical History: Reports: Other (See Below) Musculoskeletal Surgical History: Reports: Arthroscopic Knee, Other (See Below) Other Musculoskeletal Surgeries/Procedures:: spine surgery Social & Family History - Family History Family Medical History: Noncontributory Cardiac: Reports: [place] Respiratory: Reports: COPD Neurological: Reports: CVA, MS, Other (See Below) Other Neurological Family History: Polio Oncologic: Reports: Breast - Tobacco Use Smoking Status *Q: Current Every Day Smoker Years of Tobacco use: 50 Packs/Tins Daily: 0.5 - Caffeine Use Caffeine Use: Reports: Coffee, Soda Other Caffeine Use: 3 cups per day Caffeine Use Comment: 3cups/day - Recreational Drug Use Recreational Drug Use: No ED ROS GENERAL - Review of Systems Review Of Systems: Comprehensive ROS is negative, except as noted in HPI. ED EXAM, SKIN/RASH Exam: See Below Exam Limited By: No Limitations General Appearance: Alert, WD/WN Eye Exam: Bilateral Eye: EOMI, PERRL Ears: Normal External Exam, Normal Canal, Normal TMs Nose: Normal Inspection, Normal Mucosa Throat/Mouth: Normal Inspection, Normal Lips Head: Atraumatic, Other (On the very lower posterior right side of the scalp just lateral to the midline there is a rather large area of induration about the size of a [place] with a central area of scabbing and plaque with some purulent discharge. This is rather superficial. There is area of fluctuance underlying this. There is also some redness swelling cellulitic component that traverses more caudad from this area. There is no area of fluctuance in this region. Mastoid bone is quite a ways away from here and it is not boggy. She has full flexion and extension and rotation of the neck.) Neck: No: Lymphadenopathy (L), Lymphadenopathy (R), Tender Midline Respiratory/Chest: No Respiratory Distress Cardiovascular: Normal Peripheral Pulses, Tachycardia Neurological: Alert, Oriented, No Motor/Sensory Deficits Psychiatric: Normal Affect Skin: Warm, Dry, Intact, Normal Color ED SKIN PROCEDURES - I&D Site: posterior lower right scalp Skin Prep: Chlorhexidine (Hibiciens) Local Anesthesia: Lidocaine: 1% Plain Local Anesthetic Volume: 5cc Area Incised With: 11 Blade Drainage: Purulent, Moderate Amount Probed to Break Up Loculations: Yes Packed With: 1/4 in. Iodoform Complications: No Course - Vital Signs Last Recorded V/S: Last Vital Signs Temp 96.0 F L 11/19/19 11:35 Pulse 111 H 11/19/19 11:35 Resp 20 11/19/19 11:35 BP 115/57 L 11/19/19 11:35 Pulse Ox 95 11/19/19 11:35 - Orders/Labs/Meds Orders: Active Orders 24 hr Category Date Time Status CULTURE WOUND [RM] Stat Lab 11/19/19 12:35 Received Meds: Medications Discontinued Medications Generic Name Dose Route Start Last Admin Trade Name Brynn PRN Reason Stop Dose Admin Hydrocodone Bitart/Acetaminophen 1 packet 11/19/19 12:37 11/19/19 12:51 Take Home: Acetaminophen/Hydrocodone 325-10mg PO 11/19/19 12:38 1 packet ONETIME ONE Administration Lidocaine HCl 30 ml 11/19/19 12:03 11/19/19 12:38 Xylocaine-Mpf 1% INJECT 11/19/19 12:04 30 ml ONETIME ONE Administration Trimethoprim/Sulfamethoxazole 1 tab 11/19/19 12:05 11/19/19 12:38 Septra Ds PO 11/19/19 12:06 1 tab ONETIME ONE Administration Trimethoprim/Sulfamethoxazole 1 packet 11/19/19 12:38 11/19/19 12:51 Take Home: Sulfameth/Trimet 800-160mg, 2 Pack PO 11/19/19 12:39 1 packet ONETIME ONE Administration - Re-Assessments/Exams Free Text/Narrative Re-Assessment/Exam: 11/19/19 15:42 After the discussion and risk and benefits of incision and drainage in this area were explained to the patient. She gave verbal consent. Please see the procedure note. Rather impressive the amount of very thick almost pasty like purulent discharge that was removed from this area it was rinsed with steril water about 200mls with chlorhexidine. Abscess culture was obtained. Bactrim PO. I will recheck the patient in the morning and see if the packing needs to be replaced. If at any time she develops a fever new symptoms she needs to recheck immediately in the ED. SHe is understanding of this and her questions are answered. Departure - Departure Time of Disposition: 12:45 Disposition: Home, Self-Care 01 Clinical Impression: Scalp abscess - Discharge Information Prescriptions: Sulfamethoxazole/Trimethoprim [Bactrim Ds Tablet] 1 each PO BID #20 tablet Instructions: Skin Abscess, [id number] Referrals: PCP,Not In Area [Primary Care Provider] - Forms: ED Department Discharge Additional Instructions: Tylenol and or Ibuprofen as needed for pain. Warm packs to the scalp pretty much constantly for the next 24 hours and then as much as possible after that. Bactrim, 1 tablet twice daily for the next 10 days. Starter pack in the ED given and RX sent to [facility]. If pain not controlled with above. [place] 10/325 1 tablet every 4 hrs with food as needed for pain. Do not take with other tylenol as this does have tylenol in it. Starter pack given in the ED. Caution sedation. Come see me in the ED in the morning before 6:45 don't register just have me recheck the area and possibly remove the packing. Return to the ED if new or worsening symptoms. If this is getting worse at all or new symptoms develop you need to come back and consider IV anti-biotics in the hospital. Sepsis Event Note (ED) - Evaluation Sepsis Screening Result: No Definite Risk - Focused Exam Vital Signs: Vital Signs Temp Pulse Resp BP Pulse Ox 11/19/19 11:35 96.0 F L 111 H 20 115/57 L 95 - My Orders Last 24 Hours: My Active Orders 11/19/19 12:35 CULTURE WOUND [RM] Stat - Assessment/Plan Last 24 Hours: My Active Orders 11/19/19 12:35 CULTURE WOUND [RM] Stat
== END 2019-11-19 12:54 | disposition home or self-care (01) ==
LOC: VM.ED 11:30
DX: L02.811 Cutaneous abscess of head [any part, except face] (principal); I25.2 Old myocardial infarction; I50.9 Heart failure, unspecified; J44.9 Chronic obstructive pulmonary disease, unspecified; E03.9 Hypothyroidism, unspecified; E78.00 Pure hypercholesterolemia, unspecified; E66.9 Obesity, unspecified; F41.9 Anxiety disorder, unspecified; Z88.5 Allergy status to narcotic agent; Z91.030 Bee allergy status; Z88.8 Allergy status to other drugs, medicaments and biological substances; Z91.09 Other allergy status, other than to drugs and biological substances; Z79.82 Long term (current) use of aspirin; Z79.899 Other long term (current) drug therapy
CPT/HCPCS: 10060; 87070; 87077; 99283; 99283-25; A9270-GY; J2001

== ENCOUNTER 2019-11-19 19:18 | Emergency (ER) | payer OTHER ==
[2019-11-19 19:47] VITALS: BP 121/62; PULSE 106
[2019-11-19] MEDS ORDERED: Sodium Chloride 0.9% 10 ML Syringe FLUSH PRN (19:47)
--- NOTE | 2019-11-19 20:02 | EDM.PDOC ---
ED HPI GENERAL MEDICAL PROBLEM - General Chief Complaint: General Stated Complaint: PAIN AND DIZZINESS Time Seen by Provider: 11/19/19 19:40 Source of Information: Reports: Patient History Limitations: Reports: No Limitations - History of Present Illness INITIAL COMMENTS - FREE TEXT/NARRATIVE: Patient comes emergency department today for the second time with concerns of a infection on the back of her scalp. I saw this patient earlier today and did an incision and drainage on a rather large abscess on the posterior aspect of the scalp. She was started on Bactrim and had packing placed. She was instructed to return if anything was worse. Since she has gone home her pain is been quite a bit worse. She also has developed some unsteadiness with ambulation. She is also developed pain in her right elbow with swelling and some redness without any injury. She has quite a bit of swelling that is gotten worse in the back of her scalp in the last hour or so. She denies any fever or chills. She denies any visual disturbances. She denies any other paresthesias. She does complain of a headache. Headache Pain Score (Numeric/FACES): 8 - Related Data Allergies Allergy/AdvReac Type Severity Reaction Status Date / Time bee pollen Allergy Swelling Verified 11/19/19 11:42 bupropion HCl Allergy Swelling Verified 11/19/19 11:42 [From Wellbutrin] etodolac [From Lodine] Allergy Swelling Verified 11/19/19 11:42 morphine AdvReac Vomiting Verified 11/19/19 11:42 PLASTIC TAPE Allergy Rash Uncoded 11/19/19 11:42 Home Meds: Home Meds EPINEPHrine [Epipen] 1 injection IM ASDIRECTED PRN 01/15/14 [History] Magnesium Oxide [Magnesium] 400 mg PO DAILY 01/15/14 [History] ALPRAZolam [Xanax] 0.25 mg PO TID 03/22/15 [History] Amitriptyline HCl 100 mg PO BEDTIME 03/22/15 [History] Simvastatin [Zocor] 20 mg PO BEDTIME 03/22/15 [History] rOPINIRole [Requip] 4 mg PO BEDTIME 03/22/15 [History] Umeclidinium [place] [Incruse Ellipta*] 1 puff IH DAILY 08/04/16 [History] predniSONE [Prednisone] 5 mg PO DAILY 08/04/16 [History] Aspirin [Halfprin] 81 mg PO DAILY 10/12/16 [History] Cyanocobalamin (Vitamin B-12) [Vitamin B-12] 1,000 mcg PO DAILY 10/12/16 [History] Fluticasone/Salmeterol [Advair Diskus 250-50] 1 puff INH BID 10/12/16 [History] Levothyroxine 150 mcg PO ACBREAKFAST 10/12/16 [History] Lidocaine 5% [Lidoderm 5%] 3 patch TOP DAILY 10/12/16 [History] Omeprazole 40 mg PO BIDAC 10/12/16 [History] Pyridoxine HCl [Vitamin B-6] 2 mg PO BID 10/12/16 [History] Sennosides/Docusate Sodium [Senokot-S Tablet] 2 tab PO BID PRN 10/12/16 [History] Sucralfate [Carafate] 1 gm PO QID 10/12/16 [History] Thiamine [Vitamin B-1] 100 mg PO DAILY 10/12/16 [History] Gabapentin [Neurontin] 900 mg PO TID cap 10/23/16 [Rx] Ipratropium [Atrovent] 0.5 mg NEB 0700,1100,1500,2000 neb 10/23/16 [Rx] tiZANidine [Zanaflex] 4 mg PO TID #30 tablet 10/23/16 [Rx] Acetaminophen/oxyCODONE [Percocet 325-5 MG] 1 tab PO TID 11/19/19 [History] Baclofen 10 mg PO BID 11/19/19 [History] Calcium Carbonate [Calcium] 500 mg PO DAILY 11/19/19 [History] Cholecalciferol (Vitamin D3) [Vitamin D3] 2,000 unit PO DAILY 11/19/19 [History] Famotidine 40 mg PO BEDTIME 11/19/19 [History] Folic Acid 0.4 mg PO DAILY 11/19/19 [History] Levothyroxine 175 mcg PO ACBREAKFAST 11/19/19 [History] Magnesium Oxide [Magnesium] 500 mg PO BID 11/19/19 [History] Niacin 50 mg PO DAILY 11/19/19 [History] Omeprazole 40 mg PO DAILY 11/19/19 [History] Oxybutynin 10 mg PO DAILY 11/19/19 [History] Sulfamethoxazole/Trimethoprim [Bactrim Ds Tablet] 1 each PO BID #20 tablet 11/19/19 [Rx] Zinc 50 mg PO DAILY 11/19/19 [History] traZODone HCl [Trazodone HCl] 50 mg PO BEDTIME 11/19/19 [History] Past Medical History HEENT History: Reports: None Other HEENT History: wears glasses Cardiovascular History: Reports: None, Heart Failure, High Cholesterol, DE Other Cardiovascular History: Blood clots on left leg, left arm and right foot Respiratory History: Reports: Asthma, COPD Other Respiratory History: Asbestos exposure Gastrointestinal History: Reports: None Genitourinary History: Reports: None 4 H [employer] History: Reports: Musculoskeletal History: Reports: Arthritis, Back Pain, Chronic Neurological History: Reports: None Psychiatric History: Reports: Anxiety Endocrine/Metabolic History: Reports: Hypothyroidism, Obesity/BMI 30+ Hematologic History: Reports: None Oncologic (Cancer) History: Reports: None Dermatologic History: Reports: None - Infectious Disease History Infectious Disease History: Reports: Chicken Pox, Measles, Mumps Other Infectious Disease History: Hx MRSA from abdominal surgery - Past Surgical History HEENT Surgical History: Reports: Other (See Below) Other HEENT Surgeries/Procedures: throidectomy GI Surgical History: Reports: Appendectomy, Cholecystectomy, Hernia Repair/Other, Other (See Below) Other GI Surgeries/Procedures: endoscopy Female Surgical History: Reports: Hysterectomy Neurological Surgical History: Reports: Other (See Below) Musculoskeletal Surgical History: Reports: Arthroscopic Knee, Other (See Below) Other Musculoskeletal Surgeries/Procedures:: spine surgery Social & Family History - Family History Family Medical History: Noncontributory Cardiac: Reports: DE Respiratory: Reports: COPD Neurological: Reports: CVA, MS, Other (See Below) Other Neurological Family History: Polio Oncologic: Reports: Breast - Tobacco Use Smoking Status *Q: Current Every Day Smoker Years of Tobacco use: 45 Packs/Tins Daily: 0.5 - Caffeine Use Caffeine Use: Reports: Coffee, Soda Other Caffeine Use: 3 cups per day Caffeine Use Comment: 3cups/day ED ROS GENERAL - Review of Systems Review Of Systems: Comprehensive ROS is negative, except as noted in HPI. ED EXAM, GENERAL - Physical Exam Exam: See Below Exam Limited By: No Limitations General Appearance: Alert, WD/WN, No Apparent Distress Eye Exam: Bilateral Eye: EOMI, PERRL Ears: Normal External Exam, Normal TMs, Other (Mastoids are nontender and firm bilaterally) Nose: Normal Inspection Throat/Mouth: Normal Inspection Head: Atraumatic, Normocephalic, Other (On the very inferior aspect of the occiput just to the right medial the area of leg and induration has gotten quite a bit larger surprisingly. The packing is still in place. It is much more tender than it was when she initially was seen earlier today. The erythema has extended further down the right side of the neck. She is able to flex and extend and rotate with quite a bit of pain although.) Neck: Normal Inspection (See above) Respiratory/Chest: No Respiratory Distress, Lungs Clear, Normal Breath Sounds, Chest Non-Tender Cardiovascular: Normal Peripheral Pulses, Regular Rate, Rhythm GI/Abdominal: Normal Bowel Sounds, Soft Extremities: No: Normal Inspection (The right upper extremity there is some swelling on the lateral aspect of the elbow around the epicondyle. There is warmth and erythema. There is no breaks in the skin. Range of motion is appropriate to the right elbow. The rest of the extremities are unremarkable.) Neurological: Alert, Oriented, CN II-XII Intact, Normal Cognition, Normal Gait, No Motor/Sensory Deficits Psychiatric: Normal Affect, Normal Mood Skin Exam: Warm, Dry, Intact, Normal Color, No Rash Course - Vital Signs Last Recorded V/S: Last Vital Signs Temp 99.8 F 11/19/19 19:39 Pulse 106 H 11/19/19 19:39 Resp 22 H 11/19/19 19:39 BP 121/62 11/19/19 19:39 Pulse Ox 95 11/19/19 19:39 - Orders/Labs/Meds Orders: Active Orders 24 hr Category Date Time Status Head wo Cont [CT] Stat Exams 11/19/19 19:46 Taken Soft Tissue Neck w Cont [CT] Stat Exams 11/19/19 19:47 Taken CULTURE BLOOD [BC] Stat Lab 11/19/19 19:50 Received CULTURE BLOOD [BC] Stat Lab 11/19/19 20:06 Received Sodium Chloride 0.9% [Normal Saline] 1,000 ml Med 11/19/19 22:15 Active IV ASDIRECTED Sodium Chloride 0.9% [Saline Flush] Med 11/19/19 19:47 Active 10 ml FLUSH ASDIRECTED PRN Blood Culture x2 Reflex Set [OM.PC] Stat Oth 11/19/19 19:47 Ordered Peripheral IV Insertion Adult [OM.PC] Stat Oth 11/19/19 19:46 Ordered Medication Orders Sodium Chloride (Normal Saline) 1,000 mls @ 150 mls/hr IV ASDIRECTED FLORINDA Sodium Chloride (Saline Flush) 10 ml FLUSH ASDIRECTED PRN PRN Reason: Keep Vein Open Labs: Laboratory Tests 11/19/19 11/19/19 11/19/19 Range/Units 19:50 19:50 19:50 WBC 13.0 H (4.0-10.0) x10^3/uL RBC 3.99 L (4.00-5.50) x10^6/uL Hgb 11.7 L D (12.0-16.0) g/dL Hct 36.0 (33.0-47.0) % MCV 90.2 (78.0-93.0) fL MCH 29.3 (26.0-32.0) pg MCHC 32.5 (32.0-36.0) g/dL RDW Coeff of Jyoti 13.9 (10.0-15.0) % Plt Count 177 (130-400) x10^3/uL Neut % (Auto) 75.5 (50.0-80.0) % Lymph % (Auto) 12.8 L (25.0-50.0) % [place] % (Auto) 10.6 (2.0-11.0) % Eos % (Auto) 0.6 (0.0-4.0) % Baso % (Auto) 0.5 (0.2-1.2) % D-Dimer, Quantitative (<=0.58) mg/LFEU Sodium 137 (136-145) mmol/L Potassium 4.2 (3.5-5.1) mmol/L Chloride 101 (98-107) mmol/L Carbon Dioxide 29 (21-32) mmol/L Anion Gap 11.2 (10-20) mmol/L BUN 22 H (7-18) mg/dL Creatinine 1.0 (0.55-1.02) mg/dL Est Cr Clr Drug Dosing TNP Estimated GFR (MDRD) 55 Glucose 107 H (74-106) mg/dL Lactic Acid 1.4 (0.4-2.0) mmol/L Calcium 8.6 (8.5-10.1) mg/dL Corrected Calcium 9.24 (8.5-10.1) mg/dL Total Bilirubin 0.4 (0.2-1.0) mg/dL AST 16 (15-37) U/L ALT 21 (14-59) U/L Alkaline Phosphatase 76 (46-116) U/L Troponin I < 0.017 (<=0.056) ng/mL C-Reactive Protein 18.0 H (<=0.9) mg/dL Total Protein 6.9 (6.4-8.2) g/dL Albumin 3.2 L (3.4-5.0) g/dL Globulin 3.7 Albumin/Globulin Ratio 0.86 08/16/20 Range/Units 19:50 WBC (4.0-10.0) x10^3/uL RBC (4.00-5.50) x10^6/uL Hgb (12.0-16.0) g/dL Hct (33.0-47.0) % MCV (78.0-93.0) fL MCH (26.0-32.0) pg MCHC (32.0-36.0) g/dL RDW Coeff of Jyoti (10.0-15.0) % Plt Count (130-400) x10^3/uL Neut % (Auto) (50.0-80.0) % Lymph % (Auto) (25.0-50.0) % [place] % (Auto) (2.0-11.0) % Eos % (Auto) (0.0-4.0) % Baso % (Auto) (0.2-1.2) % D-Dimer, Quantitative 1.50 H (<=0.58) mg/LFEU Sodium (136-145) mmol/L Potassium (3.5-5.1) mmol/L Chloride (98-107) mmol/L Carbon Dioxide (21-32) mmol/L Anion Gap (10-20) mmol/L BUN (7-18) mg/dL Creatinine (0.55-1.02) mg/dL Est Cr Clr Drug Dosing Estimated GFR (MDRD) Glucose (74-106) mg/dL Lactic Acid (0.4-2.0) mmol/L Calcium (8.5-10.1) mg/dL Corrected Calcium (8.5-10.1) mg/dL Total Bilirubin (0.2-1.0) mg/dL AST (15-37) U/L ALT (14-59) U/L Alkaline Phosphatase (46-116) U/L Troponin I (<=0.056) ng/mL C-Reactive Protein (<=0.9) mg/dL Total Protein (6.4-8.2) g/dL Albumin (3.4-5.0) g/dL Globulin Albumin/Globulin Ratio Meds: Medications Generic Name Dose Route Start Last Admin Trade Name Freq PRN Reason Stop Dose Admin Sodium Chloride 1,000 mls @ 150 mls/hr 11/19/19 22:15 Normal Saline IV ASDIRECTED FLORINDA Sodium Chloride 10 ml 11/19/19 19:47 Saline Flush FLUSH ASDIRECTED PRN Keep Vein Open Discontinued Medications Generic Name Dose Route Start Last Admin Trade Name Freq PRN Reason Stop Dose Admin Ceftriaxone Sodium 2 gm 11/19/19 21:02 11/19/19 21:15 Rocephin IVPUSH 11/19/19 21:03 2 gm STAT ONE Administration Hydromorphone HCl 0.5 mg 11/19/19 20:56 11/19/19 21:00 Dilaudid IV 11/19/19 20:57 0.5 mg ONETIME ONE Administration Hydromorphone HCl 1 mg 11/19/19 22:23 11/19/19 22:28 Dilaudid IVPUSH 11/19/19 22:24 1 mg ONETIME ONE Administration Vancomycin HCl 1.75 gm/ Sodium 250 mls @ 145 mls/hr 11/19/19 21:04 11/19/19 21:17 Chloride IV 11/19/19 22:47 145 mls/hr STAT ONE Administration Lactated Ringer's 1,000 mls @ 150 mls/hr 11/19/19 21:45 Ringers, Lactated IV ASDIRECTED FLORINDA Piperacillin Sod/Tazobactam 100 mls @ 200 mls/hr 11/19/19 21:42 11/19/19 22:25 Sod 3.375 gm/ Sodium Chloride IV 11/19/19 22:11 200 mls/hr STAT ONE Administration Iopamidol 100 ml 11/19/19 20:51 11/19/19 20:51 Isovue-300 (61%) IVPUSH 11/19/19 20:52 100 ml ONETIME ONE Administration - Radiology Interpretation Free Text/Narrative:: CT of the head per radiology no acute intracranial hemorrhage or process identified Right occipital scalp soft tissue swelling and abscess CT soft tissue of the neck extending up to the base of the skull shows soft tissue cellulitis at the posterior right occipital region with abscess. Area of low density along the calvarium with surrounding enhancement may indicate possible subperiosteal abscess no erosion of the calvarium to suggest osteomyelitis - Re-Assessments/Exams Free Text/Narrative Re-Assessment/Exam: 11/20/19 00:13 This is clearly got quite a bit larger surprisingly in a very short period of time from even this morning we will be quite a bit more aggressive with diagno stic imaging blood cultures and antibiotics. Blood cultures x 2. Ceftriaxone and Vaco CT of the head is unremarkable other than the identified abscess which the CT soft tissue of the neck shows that it is a very large abscess that extends down to the calvarium no osteomyelitis. The patient is somewhat reluctant to be hospitalized at this time but I told her there is no other option with this rather extensive abscess that has clearly gotten worse in just a couple of hours. I called and spoke with Dr. Pires at [facility] in [place]. HPI ER course findings and concerns were relayed to him verbally over the phone. He accepted the patient in transfer and would like Zosyn given as well and he was aware of the Vanco and Ceftriaxone already. No other orders. I also spoke with Dr. Silvestre from surgery as well as this is most likely requiring surgical I/D and she agrees no new orders and will see the patient when she gets to [place]. The patient is understanding of the plan and she was given dilaudid for pain. She is understanding of the plan and her questions answered. Departure - Departure Time of Disposition: 21:30 Disposition: DC/Tfer to Acute Hospital 02 Clinical Impression: Scalp abscess - Discharge Information Referrals: PCP,None [Primary Care Provider] - Forms: ED Department Discharge, Interfacility Transfer [facility] Sepsis Event Note (ED) - Evaluation Sepsis Screening Result: No Definite Risk - Focused Exam Vital Signs: Vital Signs Temp Pulse Resp BP Pulse Ox 11/19/19 19:39 99.8 F 106 H 22 H 121/62 95 - My Orders Last 24 Hours: My Active Orders 11/19/19 19:46 Head wo Cont [CT] Stat Peripheral IV Insertion Adult [OM.PC] Stat 11/19/19 19:47 Soft Tissue Neck w Cont [CT] Stat Sodium Chloride 0.9% [Saline Flush] 10 ml FLUSH ASDIRECTED PRN Blood Culture x2 Reflex Set [OM.PC] Stat 11/19/19 19:50 CULTURE BLOOD [BC] Stat 11/19/19 20:06 CULTURE BLOOD [BC] Stat 11/19/19 22:15 Sodium Chloride 0.9% [Normal Saline] 1,000 ml IV ASDIRECTED - Assessment/Plan Last 24 Hours: My Active Orders 11/19/19 19:46 Head wo Cont [CT] Stat Peripheral IV Insertion Adult [OM.PC] Stat 11/19/19 19:47 Soft Tissue Neck w Cont [CT] Stat Sodium Chloride 0.9% [Saline Flush] 10 ml FLUSH ASDIRECTED PRN Blood Culture x2 Reflex Set [OM.PC] Stat 11/19/19 19:50 CULTURE BLOOD [BC] Stat 11/19/19 20:06 CULTURE BLOOD [BC] Stat 11/19/19 22:15 Sodium Chloride 0.9% [Normal Saline] 1,000 ml IV ASDIRECTED
[2019-11-19 20:36] LABS: CHLORIDE,CL 101 mmol/L (98-107); SODIUM,NA 137 mmol/L (136-145)
[2019-11-19 20:40] LABS: ANION GAP 11.2 mmol/L (10-20)
[2019-11-19] MEDS ORDERED: Iopamidol 612 MG/ML 100 ML Bottle IVPUSH ONE (20:51)
[2019-11-19] MEDS ORDERED: HYDROmorphone 0.5 MG/0.5 ML Syringe IV ONE (20:56)
[2019-11-19] MEDS ORDERED: cefTRIAXone 2 GM Vial IVPUSH ONE (21:02)
[2019-11-19] MEDS ORDERED: Piperacillin/Tazobactam 3.375 GM in Sodium Chloride 0.9% 100 ML IV ONE (21:42)
[2019-11-19] MEDS ORDERED: Lactated Ringers 1,000 ML IV SCH (21:45)
[2019-11-19] MEDS ORDERED: Sodium Chloride 0.9% 1,000 ML IV SCH (22:15)
[2019-11-19] MEDS ORDERED: HYDROmorphone 1 MG/ML Syringe IVPUSH ONE (22:23)
--- NOTE | 2019-11-20 08:02 | CT ---
[id number] CT/CT Head WO IV EXAM: NONCONTRAST HEAD CT INDICATION: HEADACHE, DIZZINESS, POSTERIOR SCALP ABSCESS COMPARISON: None. DISCUSSION: Soft tissue swelling in the right posterior scalp at the level of the occiput with focal soft tissue gas and high density material measuring 11 x 10 x 18 mm which may represent the sequela of a small abscess or recent I D. No drainable collection is currently identified, but evaluation is mildly limited without intravenous contrast agent. The ventricles and sulci are normal in size and configuration. The varghese and white matter are normal in attenuation. No mass effect or midline shift. No acute hemorrhage or extra-axial fluid collection. No acute territorial infarct is identified. A limited look at the orbits and paranasal sinuses is unremarkable. IMPRESSION: Right occipital scalp soft tissue swelling and sequela of small abscess or recent incision and drainage. El Rosenberg MD 11/20/19 0800 Thank you for allowing us to participate in the care of your patient.
--- NOTE | 2019-11-20 08:14 | CT ---
[id number] CT/CT Neck Soft Tissue W IV EXAM: SOFT TISSUE NECK CT WITH CONTRAST INDICATION: ABSCESS POSTERIOR SCALP COMPARISON: None. DISCUSSION: Inflammatory changes in the posterior right upper neck subcutaneous tissues and occipital region of the right scalp likely representing infection/cellulitis in the clinical context of abscess. An 18 x 11 x 10 mm gas and high density fluid collection at the site may represent a small abscess or sequela of recent I D. Possible thin fluid collection abutting the right occipital scalp which could represent a small residual abscess which measures up to 5 mm in thickness. No residual drainable collection is currently identified. The left lobe of the thyroid gland is small or absent. The parotid and submandibular glands are normal in appearance. No adenopathy. The imaged lung apices and skull base are unremarkable. Degenerative changes are noted in the cervical spine with mild associated retrolisthesis C3-C4. IMPRESSION: 1. Small abscess or sequela of recent incision and drainage right occipital scalp. Deep to the site there is a thin collection of fluid abutting the calvarium which is nonspecific, but could represent a tiny abscess. El Rosenberg MD 11/20/19 0813 Thank you for allowing us to participate in the care of your patient.
== END 2019-11-19 23:35 | disposition short-term general hospital (02) ==
LOC: VM.ED 19:18
DX: L02.811 Cutaneous abscess of head [any part, except face] (principal); I50.9 Heart failure, unspecified; E78.00 Pure hypercholesterolemia, unspecified; I25.2 Old myocardial infarction; J44.9 Chronic obstructive pulmonary disease, unspecified; E03.9 Hypothyroidism, unspecified; E66.9 Obesity, unspecified; F41.9 Anxiety disorder, unspecified; Z90.49 Acquired absence of other specified parts of digestive tract; Z90.710 Acquired absence of both cervix and uterus; Z91.030 Bee allergy status; Z88.8 Allergy status to other drugs, medicaments and biological substances; Z88.5 Allergy status to narcotic agent; Z79.82 Long term (current) use of aspirin; Z91.09 Other allergy status, other than to drugs and biological substances; Z79.899 Other long term (current) drug therapy
CPT/HCPCS: 36415; 70450; 70491; 80053; 83605; 84484; 85025; 85379; 86140; 87040; 96365; 96366; 96368; 96375; 96376; 99285-25; J0696; J1170; J2543; J3370; J7050; Q9967